=== PATIENT | female | born 1930 | race Caucasian/White ===

== ENCOUNTER 2017-01-23 03:36 | Inpatient (IN) ==
[2017-01-23] MEDS ORDERED: Naloxone 0.4 MG/ML INJ IVP PRN (07:57)
--- NOTE | 2017-01-23 08:13 | Internal Med History&Physical ---
Date of Encounter: 01/23/17 Time of Encounter: 08:03 Assessment and Plan (1) Epilepsy Current visit: Yes Status: Acute Patient is newly diagnosed with epilepsy. This is a clinical diagnosis at [facility]. I have spoken with neurologist change control coordinator. Case discussed with the neurology change control coordinator at length. Plan: -Admitted as an observation. -Soft diet. -Restarted home medications. -IV benzodiazepines for terminating seizures. -Fall precautions. -Seizure precautions. -MRI of brain. -EEG. -Neurologic consult. -PT/OT evaluation. -DVT prophylaxis. Qualifiers: Epilepsy type: unspecified Intractability: not intractable Status epilepticus: without status epilepticus Qualified Code(s): G40.909 - Epilepsy , unspecified, not intractable, without status epilepticus (2) Parkinsons disease Current visit: Yes Status: Acute Standing Parkinson's disease. Restart her home medication. (3) Hypertension Current visit: Yes Status: Acute Noted that the patient's blood pressure was elevated. Restarted home medications. We will have a close observation regarding her blood pressure. It does not appear that this patient has a hypertensive urgency/emergency. Qualifiers: Hypertension type: essential hypertension Qualified Code(s): I10 - Essential (primary) hypertension (4) Hyperlipidemia Current visit: Yes Status: Acute Patient is on statins. We will continue the same. Qualifiers: Hyperlipidemia type: unspecified Qualified Code(s): E78.5 - Hyperlipidemia , unspecified (5) DVT prophylaxis Current visit: Yes Status: Acute Heparin. Medical decision making: This patient has a [id number] risk of worsening neurological status in spite of being on appropriate treatment. Internal Medicine - H&P: HPI Chief complaint: Seizures Admitted From: Hospital to Hospital Transfer Plans for Post Hospital Care: Home History of present illness: Patient is a poor historian. History gathered from the transfer papers and call to hold the hospital emergency department. Patient is known to have a Parkinson's disease. Patient has multiple medical disorders. It was noted that recently patient was started tapering dosages of benzodiazepines as she was taking pretty high dosages for her anxiety. It was noted that patient had a jerky movement of her upper and lower extremity formulas than 2 minutes. This was the reason she was brought to the [facility] emergency room. 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 Patient was transferred to this hospital for further management. Reason for transfer: Speciality care was not available at [facility] : Neurology service. Family history: Noncontributory Internal Medicine - H&P: Meds Atorvastatin [Lipitor] 20 mg PO HS 01/23/17 [History] Buspirone HCl [Buspar] 20 mg PO BID 01/23/17 [History] Carbidopa/Levodopa [Carbidopa-Levo 10-100 mg Odt] 1 each PO TID 01/23/17 [ History] Citalopram [CeleXA] 20 mg PO DAILY 01/23/17 [History] Cyclobenzaprine [Flexeril] 10 mg PO HS 01/23/17 [History] Ibuprofen [Motrin] 400 mg PO TID PRN 01/23/17 [History] Labetalol HCl 200 mg PO BID 01/23/17 [History] Lisinopril [Zestril] 10 mg PO DAILY 01/23/17 [History] Simvastatin [Zocor] 40 mg PO HS 01/23/17 [History] Tizanidine HCl [Zanaflex] 2 mg PO Q12H PRN 01/23/17 [History] Allergies ciprofloxacin [From Cipro] Allergy (Unknown, Verified 01/23/17 06:36) See Comments unknown reaction/ patient confused Penicillins Allergy (Unknown, Verified 01/23/17 06:37) See Comments reaction unknown/patient confused All Systems PM: A 10-system review of systems was performed and is negative for pertinent findings except as documented above in the HPI. - Constitutional Constitutional: no chills, no fever(s), no night sweats - EENT Eyes: no change in vision, no discharge, no pain, no photophobia Ears: no ear discharge, no ear pain, no tinnitus Nose, mouth and throat: no dysphagia, no nasal discharge, no neck pain, no sore throat - Cardiovascular Cardiovascular ROS IM: no chest pain, no diaphoresis, no dyspnea, no lightheadedness, no palpitations, no syncope - Respiratory Respiratory: no cough, no dyspnea, no wheezing, no excessive phlegm production - Gastrointestinal Gastrointestinal: no abdominal pain, no diarrhea, no hematemesis, no hematochezia, no melena, no nausea, no vomiting - Genitourinary Genitourinary: no change in urinary stream, no dysuria, no flank pain, no hematuria - Musculoskeletal Musculoskeletal ROS IM: no numbness, no tingling - Integumentary Integumentary IM: no rash, no unusual bruising - Neurological Neurological ROS: no confusion, no convulsions, no focal weakness, no numbness, no tingling, no tremor(s) - Hematologic/Lymphatic Hematologic/Lymphatic: no easy bruising - Constitutional Vitals: Temp Pulse Resp BP Pulse Ox 98.2 F 81 18 169/81 95 01/23/17 07:39 01/23/17 07:39 01/23/17 07:39 01/23/17 07:39 01/23/17 07:39 General appearance: Present: A&O X 3, pleasant, no acute distress, answers questions appropriately - Head Head exam: Present: atraumatic, normocephalic - Eye Eye exam: Present: PERRL, conjuntiva pink, sclera anicteric Pupils: Present: PERRL - Neck Neck exam general surgery: Present: supple, trachea midline. Absent: lymphadenopathy - Respiratory Respiratory exam: Present: CTAB. Absent: accessory muscle use, rales, rhonchi, wheezes - Cardiovascular Cardiovascular exam: Present: RRR, +S1, +S2. Absent: diastolic murmur, gallop, rubs, systolic murmur - GI/Abdominal GI/Abdominal exam: Present: normal bowel sounds, soft, no peritoneal signs. Absent: distended, tenderness - Extremities Exam Extremities exam: Present: warm, radial pulses palpable and symetrical. Absent : calf tenderness, cyanotic, pedal edema - Neurological Exam Neurological exam: Present: CN II-XII intact, oriented X3, no focal deficits. Absent: pronater drift, facial droop, speech deficit - Skin Skin exam: Present: dry, intact Internal Med - H&P Results - Labs CBC & Chem 7: 01/24/17 12:18 01/24/17 11:36
[2017-01-23] MEDS: *HR* Heparin 5,000 UNIT/ML VIAL SQ SCH ×2 (08:28→20:27)
[2017-01-23] MEDS: CARBIDOPA LEVO PO SCH ×3 (08:29→23:58)
[2017-01-23 08:33] LABS: Basophils % 0.4 %; Eosinophils % 0.4 %; Hematocrit 36.4 % (35.3-44.9); Hemoglobin 12.2 g/dL (11.5-15.4); Immature Granulocytes % 0.3 % (0-4); Lymphocytes # 1.8 K/mcL (0.6-4.6); Mean Corpuscular HGB Conc 33.5 g/dL (31.6-35.5); Mean Corpuscular Hemoglobin 29.5 pg (28.0-33.3); Mean Corpuscular Volume 87.9 fL (83.0-100.0); Mean Platelet Volume 10.4 fL (9.4-12.4); Monocytes # 0.6 K/mcL (0.0-1.3); Monocytes % 8.2 %; Neutrophils # 4.6 K/mcL (1.6-8.9); Platelet Count 209 K/mcL (140-400); Red Blood Count 4.14 M/mcL (3.82-4.97); Red Cell Distribution Width 12.8 % (11.5-14.5); Segmented Neutrophils % 65.7 %
[2017-01-23 09:00] LABS: Alanine Aminotransferase 18 Units/L (0-55); Albumin 3.4 g/dL (3.5-5.0); Albumin/Globulin Ratio 1.1 (1.1-2.2); Alkaline Phosphatase 88 Units/L (38-126); Aspartate Amino Transferase 17 Units/L (5-34); BUN/Creatinine Ratio 15 (6-26); Bilirubin,Total 0.8 mg/dL (0.2-1.2); Blood Urea Nitrogen 11 mg/dL (7-20); Calcium 8.6 mg/dL (8.6-10.8); Carbon Dioxide 20 mEq/L (19-29); Chloride 105 mEq/L (98-109); Glucose 105 mg/dL (70-99); Magnesium 1.9 mg/dL (1.6-2.6); Osmolality,Calculated 280 (280-300); Phosphorous 3.1 mg/dL (2.3-4.7); Potassium 3.9 mEq/L (3.5-4.5); Sodium 135 mEq/L (136-145); Total Protein 6.4 g/dL (6.0-8.3); eGFR For African Americans > 60 (> 60); eGFR For Non-African Americans > 60 (> 60)
[2017-01-23 10:51] LABS: Bilirubin,Urine Negative (Negative); Blood,Urine Negative (Negative); Clarity,Urine Clear (Clear); Color,Urine Yellow (Yellow); Glucose,Urine (UA) Normal (Normal); Ketones,Urine 40 mg/dL (Negative); Leukocyte Esterase,Urine Trace (Negative); Nitrite,Urine Negative (Negative); Protein,Urine Negative (Neg-Trace); Specific Gravity,Urine 1.014 (1.010-1.025); Urobilinogen,Urine Normal (Normal)
[2017-01-23 10:53] LABS: Bacteria,Urine Few per hpf (None-Few); Hyaline Casts,Urine None Seen per lpf (None-Few); RBC,Urine 0-3 per hpf (0-3); Squamous Epithelial Cell,Urine Many per lpf (None-Few)
[2017-01-23] MEDS: *HR* LORazepam 2 MG/ML VIAL IVP PRN ×2 (15:08→20:28)
--- NOTE | 2017-01-23 16:45 | Neurology - Consult Note ---
Date of Encounter: 01/23/17 Time of Encounter: 16:39 Assessment and Plan (1) Epilepsy Current Visit: Yes Status: Acute Patient is an 86 year old woman with Parkinson's disease anxiety who developed some shaking, tremor, and jerking activity involving her arms witnessed by physician calling it /temporal lobe epilepsy', occurring in a time when she is being tapering down the use of benzediazepam. This could be complicated by benzodiazepam withdrawal, either in the form of withdwaral anxiety or withdrawal seizure activity. Prior history of seizure is vague but at this time it would be rasmussen to start her on antiepileptic therapy, totally, empirical, in the form of keppra 250mg bid. Obtain MRI of brain and routine EEG. Continue medical and supportive. Can follow up the patient in clinic after discharge from the hospital. Qualifiers: Epilepsy type: unspecified Intractability: not intractable Status epilepticus: without status epilepticus Qualified Code(s): G40.909 - Epilepsy , unspecified, not intractable, without status epilepticus History of Present Illness Chief complaint: seizure likely activity HPI: Ms. Reno is an 86 year old female wih H significant for Parkinson's disease , anxiety on chronic nerve pills, who presented initially to [facility] due to having shaking/jerking activity thought to be temporal lobe epilepsy and transferred here to further evaluation and treatment. Reportedly, patient have been in the process of tapering down the use of quite large dose of benzodiazepam and she developed some anxiety and shakiness and was told to have temporal epilepsy at the request of physician at [facility]. Patient has no prior history of seizures and says that she has nervousness spells but she does not pass out. She is a poor historian but mentions that she may have seizures in her younger years. No reports of tongue biting or urinary incontinence. She carries diagnosis of Parkinson disease made by her PCP. Has not seen a neurologist to her knowledge. She says that she has bad memory and can not remember nothing. Medications and Allergies Atorvastatin [Lipitor] 20 mg PO HS 01/23/17 [History] Buspirone HCl [Buspar] 20 mg PO BID 01/23/17 [History] Carbidopa/Levodopa [Carbidopa-Levo 10-100 mg Odt] 1 each PO TID 01/23/17 [ History] Citalopram [CeleXA] 20 mg PO DAILY 01/23/17 [History] Cyclobenzaprine [Flexeril] 10 mg PO HS 01/23/17 [History] Ibuprofen [Motrin] 400 mg PO TID PRN 01/23/17 [History] Labetalol HCl 200 mg PO BID 01/23/17 [History] Lisinopril [Zestril] 10 mg PO DAILY 01/23/17 [History] Simvastatin [Zocor] 40 mg PO HS 01/23/17 [History] Tizanidine HCl [Zanaflex] 2 mg PO Q12H PRN 01/23/17 [History] Allergies ciprofloxacin [From Cipro] Allergy (Unknown, Verified 01/23/17 06:36) See Comments unknown reaction/ patient confused Penicillins Allergy (Unknown, Verified 01/23/17 06:37) See Comments reaction unknown/patient confused All Systems: A 10-system review of systems was performed and is negative for pertinent findings except as documented above in the HPI. Physical Examination - Vital Signs Vital Signs: Initial Vital Signs Temp Pulse Resp BP Pulse Ox 98.7 F 80 20 187/78 94 L 01/23/17 05:43 01/23/17 05:43 01/23/17 05:43 01/23/17 05:43 01/23/17 05:43 - Constitutional General appearance: comfortable - Neurologic Sensorimotor examination: intact Detailed motor examination: other (Diffusely weak but no significant focal weakness. ) Detailed sensory examination: intact Posture: other (Patient has diffuse muslc rigidity, positive for cogwheeling rigidity, without unilateral preference. Fine tremors noted in her hadns and fingers, mixed features of rest and postural tremors) Reflex and gait examination: intact Reflexes: Biceps: 2+, Triceps: 2+, Brachioradialis: 2+, Patella: 2+, Achilles: 2 + Mental Status Examination: awake, alert, oriented to person, oriented to place, oriented to time, follows commands appropriately, answers questions appropriately (Tend to repeat and digress, Unable to provide detailed story of her illness. Focuses on some chest discorts and abdominal discomforts to the left flank area), no agnosia, no aphasia, no aproxia, lucid, follows simple commands Cranial nerve examination: PERRL, EOMI, visual frye intact, corneal reflexes brisk symmetrically, sensory to face intact, mastication intact, no facial asymmetry is present, no dysarthria, hearing is intact symmetrically, soft palate elevates bilaterally upon phonation, gag reflex intact, flexes SCM and trapezius muscles symmetrically with full power, tongue protrudes midline, no atrophy or facial fasiculations present Results - Laboratory Findings CBC and BMP: 01/23/17 08:22 01/23/17 08:22 Abnormal lab findings: Abnormal lab results Sodium 135 mEq/L (136-145) L 01/23/17 08:22 Glucose 105 mg/dL (70-99) H 01/23/17 08:22 POC Glucose 119 (58-89) H 01/23/17 15:45 Albumin 3.4 g/dL (3.5-5.0) L 01/23/17 08:22 Urine Ketones 40 mg/dL (Negative) H 01/23/17 10:30 Ur Leukocyte Esterase Trace (Negative) H 01/23/17 10:30 Urine Microscopic WBC 3-5 per hpf (0-3) H 01/23/17 10:30 Ur Squamous Epith Cells Many per lpf (None-Few) H 01/23/17 10:30 Consult Discharge Plan - Plan Referrals: Brock Cr DO [Primary Care Provider] - 01/30/17 2:00 pm
[2017-01-23] MEDS: levETIRAcetam 250 MG TABLET PO SCH (17:18)
[2017-01-24] MEDS: *HR* Heparin 5,000 UNIT/ML VIAL SQ SCH ×2 (05:42→20:12)
[2017-01-24] MEDS: levETIRAcetam 250 MG TABLET PO SCH ×2 (05:42→17:39)
[2017-01-24] MEDS: CARBIDOPA LEVO PO SCH (07:39)
--- NOTE | 2017-01-24 10:16 | Internal Med Progress Note ---
<Francisco Perry - Last Filed: 01/24/17 10:10> Date of Encounter: 01/24/17 Time of Encounter: 10:20 - Assessment and plan (1) Epilepsy Current Visit: Yes Status: Acute Assessment and plan: Questionable. MRI showed no evidence of lesion or sequela secondary to epilepsy. Neurology is following the patient is started the patient on Keppra 500 mg twice a day. EEG is pending. No seizure activity since presentation. Continue seizure precautions. Other causes of the patient's symptoms also include benzodiazepine withdrawal as the patient was being tapered as an outpatient. We will restart low-dose Ativan on dose that she was receiving as an outpatient. There does not appear to be a metabolic derangement that could cause her symptoms, ACS appears unlikely as troponin at the outpatient facility was negative, we will recheck. Patient does have some ST depression in V5 and V6, there is no old EKG to compare to. Qualifiers: Epilepsy type: unspecified Intractability: not intractable Status epilepticus: without status epilepticus Qualified Code(s): G40.909 - Epilepsy , unspecified, not intractable, without status epilepticus (2) Parkinsons disease Current Visit: Yes Status: Acute Assessment and plan: Could be contributing to the patient's presenting symptoms. There is no appear to be an active tremor at this time. Continue Sinemet. (3) Hyperlipidemia Current Visit: Yes Status: Acute Assessment and plan: Continue statin. Qualifiers: Hyperlipidemia type: unspecified Qualified Code(s): E78.5 - Hyperlipidemia , unspecified (4) Hypertension Current Visit: Yes Status: Acute Assessment and plan: Patient was hypertensive on presentation but this is resolved. Hypertension could have also contributed to her presenting symptoms. Continue labetalol 20 mg by mouth BID Qualifiers: Hypertension type: essential hypertension Qualified Code(s): I10 - Essential (primary) hypertension (5) DVT prophylaxis Current Visit: Yes Status: Acute Assessment and plan: Heparin 5000 units subcutaneous twice a day. - Subjective Interval history: Patient seen and examined at bedside. Patient has no complaints today. She does state that she had some slight chest pain yesterday but this is resolved. She denies any episodes of shaking, trembling, loss of consciousness. No seizure activity was reported by the staff. - Constitutional Vitals: Temp Pulse Resp BP Pulse Ox 97.7 F 74 16 121/68 97 01/24/17 07:14 01/24/17 07:14 01/24/17 07:14 01/24/17 07:14 01/24/17 07:14 General appearance: Present: A&O X 3, pleasant, no acute distress, answers questions appropriately - Respiratory Respiratory exam: Present: CTAB. Absent: rales, rhonchi, wheezes - Cardiovascular Cardiovascular exam: Present: RRR. Absent: gallop, rubs, systolic murmur - GI/Abdominal GI/Abdominal exam: Present: normal bowel sounds, soft. Absent: distended, tenderness - Extremities Exam Extremities exam: Absent: pedal edema, tenderness - Neurological Exam Neurological exam: Present: alert, CN II-XII intact, oriented X3, no focal deficits, strengths equal and symetr throughout. Absent: motor sensory deficit Internal Medicine: Result - Labs CBC & Chem 7: 01/23/17 08:22 01/23/17 08:22 Labs: Urine 01/23/17 Range/Units 10:30 Urine Color Yellow (Yellow) Urine Clarity Clear (Clear) Urine pH 7.0 (5.0-8.0) pH Units Ur Specific [place] 1.014 (1.010-1.025) Urine Protein Negative (Neg-Trace) mg/dL Urine Glucose (UA) Normal (Normal) mg/dL - Impressions Impressions Chest X-Ray 01/23/17 07:59 IMPRESSION: 1. No convincing evidence of an acute cardiopulmonary abnormality. 2. Moderate hiatal hernia. D/ / Derrick Licona MD / Derrick Licona MD Interpreting Provider: Derrick Licona MD Brain MRI 01/23/17 08:21 IMPRESSION: 1. No acute intracranial abnormality. 2. No findings to suggest etiology of reported temporal lobe epilepsy. 3. Senescent parenchymal volume loss and mild chronic white matter microvascular ischemic changes. D/ / Kulwinder Whitehead MD / Kulwinder Whitehead MD Interpreting Provider: Kulwinder Whitehead MD Consult Discharge Plan - Plan Referrals: Brock Cr DO [Primary Care Provider] - 01/30/17 2:00 pm <Nav Wood - Last Filed: 01/24/17 11:07> Date of Encounter: 01/24/17 - Constitutional Vitals: Temp Pulse Resp BP Pulse Ox 97.7 F 74 16 121/68 97 01/24/17 07:14 01/24/17 07:14 01/24/17 07:14 01/24/17 07:14 01/24/17 07:14 Internal Medicine: Result - Labs CBC & Chem 7: 01/23/17 08:22 01/23/17 08:22 - Impressions Impressions Brain MRI 01/23/17 08:21 IMPRESSION: 1. No acute intracranial abnormality. 2. No findings to suggest etiology of reported temporal lobe epilepsy. 3. Senescent parenchymal volume loss and mild chronic white matter microvascular ischemic changes. D/ / Kulwinder Whitehead MD / Kulwinder Whitehead MD Interpreting Provider: Kulwinder Whitehead MD - Attending Attestation CP with possible st dep lat leads order stress test for the morning may discontinue keppra if EEG normal I examined this patient and my medical decision-making was reviewed with the TRIAGE TECHNICIAN/PA/Advanced Practice Nurse/Resident Physician. I agree with the documented findings, disposition and treatment plan as described except to the extent set forth below.
[2017-01-24] MEDS: *HR* LORazepam 0.5 MG TABLET PO SCH ×2 (10:50→20:12)
[2017-01-24 11:57] LABS: BUN/Creatinine Ratio 28 (6-26); Blood Urea Nitrogen 25 mg/dL (7-20); Calcium 8.6 mg/dL (8.6-10.8); Carbon Dioxide 24 mEq/L (19-29); Chloride 106 mEq/L (98-109); Glucose 99 mg/dL (70-99); Osmolality,Calculated 288 (280-300); Potassium 4.1 mEq/L (3.5-4.5); Sodium 137 mEq/L (136-145); eGFR For African Americans > 60 (> 60); eGFR For Non-African Americans > 60 (> 60)
--- NOTE | 2017-01-24 11:57 | Electrocardiograph Report ---
[place] [id number] Test Date: 2017-01-23 Pat Name: Elba Reno Department: 112 Room: 2A23 Gender: F Project Architect: : [id number] Requested By: Nav Wood Order Number: [id number] Reading MD: Daily Encarnacion Measurements Intervals Conifer Rate: 99 P: MN: 0 QRS: -57 QRSD: 134 T: 83 QT: 398 QTc: 454 Interpretive Statements SINUS RHYTHM WITH PAC MARKED LEFT AXIS DEVIATION LEFT BUNDLE BRANCH BLOCK Electronically Signed On 01-24-2017 11:56:33 EST by Daily Encarnacion
--- NOTE | 2017-01-24 12:04 | EEG/EMG/Oth Biometrics Report ---
EEG Procedure Report Date of procedure: 01/24/17 EEG Procedure: Routine EEG Procedure Note: This EEG was acquired with standard international 1020 system with EKG recording. The background EEG activity was characterized by the presence of posterior dominant alpha rhythm with the best frequency up to 10.5 Hz. The background activity was reactive to eye openings. Sleep stages were not identified during this tracing. Drowsiness was characterized by drop off of posterior dominant Alpha rhythm. There are no electrographic seizures identified during this tracing. There are no epileptiform discharges and focal slowing noted during this recording. Photic stimulation produced and produced no abnormalities. Hyperventilation procedure not performed EKG tracing showed no significant cardiac dysrhythmia. Impression: This is essentially a normal awake and drowsy EEG. Clinical Correlation: Normal EEGs, however, do not exclude epilepsy. Clinical correlation is advised.
[2017-01-24 12:27] LABS: Basophils % 0.5 %; Eosinophils # 0.1 K/mcL (0.0-0.6); Eosinophils % 1.1 %; Hematocrit 33.1 % (35.3-44.9); Hemoglobin 11.1 g/dL (11.5-15.4); Immature Granulocytes % 0.2 % (0-4); Lymphocytes % 30.2 %; Mean Corpuscular HGB Conc 33.5 g/dL (31.6-35.5); Mean Corpuscular Hemoglobin 29.9 pg (28.0-33.3); Mean Corpuscular Volume 89.2 fL (83.0-100.0); Mean Platelet Volume 10.5 fL (9.4-12.4); Monocytes # 0.7 K/mcL (0.0-1.3); Monocytes % 10.5 %; Neutrophils # 3.8 K/mcL (1.6-8.9); Platelet Count 194 K/mcL (140-400); Red Blood Count 3.71 M/mcL (3.82-4.97); Red Cell Distribution Width 13.1 % (11.5-14.5); Segmented Neutrophils % 57.5 %
[2017-01-25] MEDS: *HR* Heparin 5,000 UNIT/ML VIAL SQ SCH ×2 (05:11→20:25)
[2017-01-25] MEDS: levETIRAcetam 250 MG TABLET PO SCH ×2 (05:11→17:50)
[2017-01-25] MEDS ORDERED: Regadenoson 0.4 MG/5 ML SYRINGE IVP ONE (06:44)
[2017-01-25 07:10] LABS: BUN/Creatinine Ratio 27 (6-26); Blood Urea Nitrogen 20 mg/dL (7-20); Calcium 8.1 mg/dL (8.6-10.8); Carbon Dioxide 23 mEq/L (19-29); Chloride 107 mEq/L (98-109); Glucose 94 mg/dL (70-99); Osmolality,Calculated 290 (280-300); Potassium 3.7 mEq/L (3.5-4.5); Sodium 139 mEq/L (136-145); eGFR For African Americans > 60 (> 60); eGFR For Non-African Americans > 60 (> 60)
[2017-01-25 07:29] LABS: Basophils % 0.4 %; Eosinophils # 0.2 K/mcL (0.0-0.6); Eosinophils % 2.3 %; Hematocrit 30.7 % (35.3-44.9); Hemoglobin 10.2 g/dL (11.5-15.4); Immature Granulocytes % 0.1 % (0-4); Lymphocytes # 2.2 K/mcL (0.6-4.6); Lymphocytes % 32.2 %; Mean Corpuscular HGB Conc 33.2 g/dL (31.6-35.5); Mean Corpuscular Hemoglobin 30.1 pg (28.0-33.3); Mean Corpuscular Volume 90.6 fL (83.0-100.0); Monocytes # 0.7 K/mcL (0.0-1.3); Monocytes % 9.9 %; Neutrophils # 3.8 K/mcL (1.6-8.9); Platelet Count 166 K/mcL (140-400); Red Blood Count 3.39 M/mcL (3.82-4.97); Red Cell Distribution Width 13.1 % (11.5-14.5); Segmented Neutrophils % 55.1 %
--- NOTE | 2017-01-25 10:49 | Discharge Summary ---
Date of Encounter: 01/25/17 Time of Encounter: 10:49 - Discharge Diagnosis (1) Epilepsy Priority: Primary Status: Acute Qualifiers: Epilepsy type: unspecified Intractability: not intractable Status epilepticus: without status epilepticus Qualified Code(s): G40.909 - Epilepsy , unspecified, not intractable, without status epilepticus (2) Parkinsons disease Priority: Secondary Status: Chronic (3) Hyperlipidemia Priority: Secondary Status: Chronic Qualifiers: Hyperlipidemia type: unspecified Qualified Code(s): E78.5 - Hyperlipidemia , unspecified (4) Hypertension Priority: Secondary Status: Chronic Qualifiers: Hypertension type: essential hypertension Qualified Code(s): I10 - Essential (primary) hypertension - Discharge Medications Prescriptions: LevETIRAcetam [Keppra] 250 mg PO Q12HR #60 tablet Home Medications: Atorvastatin [Lipitor] 20 mg PO HS 01/23/17 [History] Buspirone HCl [Buspar] 20 mg PO BID 01/23/17 [History] Carbidopa/Levodopa [Carbidopa-Levo 10-100 mg Odt] 1 each PO TID 01/23/17 [ History] Citalopram [CeleXA] 20 mg PO DAILY 01/23/17 [History] Cyclobenzaprine [Flexeril] 10 mg PO HS 01/23/17 [History] Ibuprofen [Motrin] 400 mg PO TID PRN 01/23/17 [History] Labetalol HCl 200 mg PO BID 01/23/17 [History] Lisinopril [Zestril] 10 mg PO DAILY 01/23/17 [History] Simvastatin [Zocor] 40 mg PO HS 01/23/17 [History] Tizanidine HCl [Zanaflex] 2 mg PO Q12H PRN 01/23/17 [History] Carbidopa/Levodopa 10/100 [Sinemet 10/100] 1 each PO TID tablet 01/25/17 [Rx] LORazepam [Ativan] 0.25 mg PO BID tablet 01/25/17 [Rx] LevETIRAcetam [Keppra] 250 mg PO Q12HR #60 tablet 01/25/17 [Rx] Allergies/Adverse Reactions: Allergies ciprofloxacin [From Cipro] Allergy (Unknown, Verified 01/23/17 06:36) See Comments unknown reaction/ patient confused Penicillins Allergy (Unknown, Verified 01/23/17 06:37) See Comments reaction unknown/patient confused Procedures/tests Complete & Pending: Procedures Performed prior 72 hours Category Date Time Status NM kitty perf SPECT multi [NM] Routine Exams 01/24/17 07:00 Taken MR head/brain wo con [MR] Routine MRI 01/23/17 08:21 Completed ECG 12 lead ECG [ECG] Routine Y 01/23/17 14:58 Completed EKG [ECG 12 lead ECG] [ECG] Stat Y 01/24/17 10:03 Stop Req SP pharm nuclear stress Routine Y 01/25/17 07:00 Completed Date of admission: 01/23/17 05:11 Primary care physician: Brock Cr, Consults: 01/23/17 06:43 Consult to Neurology [CONS] Routine Consulting Provider: [facility] Reason for Consult: Seizures Call Completed: No 01/23/17 08:00 Consult to Occupational Therapy [CONS] Routine Comment: Evaluate, develop and implement POC Consult to Physical Therapy [CONS] Routine Comment: Evaluate, develop and implement POC Consult to Residential Sales Executive [CONS] Routine Reason for SW Consult: placement 01/23/17 11:46 Consult to Interpret Exam [CONS] Routine Consulting Provider: Сергей Finnegan Consult to Interpret Exam: Interpret EEG Discharging clinician: Francisco Perry Anticipated date of discharge: 01/25/17 - Patient Status Disposition: Home Health Service Condition: Fair Functional capacity at discharge: independent ambulation Overall status at discharge: patient is progressing back to baseline - Discharge Instructions Follow Up With: Brock Cr DO [Primary Care Provider] - 01/30/17 2:00 pm Сергей Finnegan MD [Partnered Physician] - (3-4 weeks) Additional Instructions: Please follow up with her primary care physician in the next 1-2 weeks. Please follow-up with the neurologist, Dr. Finnegan, as scheduled. Please resume your home medications. Please start Keppra 250 mg twice a day. Please return for any new or worsening symptoms. - Diet and Activity Activity: ambulate only with your walker, increase activity as tolerated Diet: advance to your usual diet Interval History: Patient seen and examined at bedside. No acute events overnight. No evidence of seizure activity. Patient denies chest pain, shortness of breath, fever, chills. Hospital course: Ms. Rowdy is a 86 year old female with history of hypertension, hyperlipidemia , parkinsons disease presented with acute onset shaking. She was evaluated at outside hospital was concern for epileptic seizure so the patient was transferred to our facility. Patient had been on long-term chronic benzodiazepine therapy that was being withdrawn. Patient had no seizure activity during her hospital course. She was seen and evaluated by neurologist. She had an MRI of the brain and EEG which were essentially normal. Patient was placed on Keppra. Patient did have some chest pain during her hospitalization the patient underwent cardiac stress testing which was negative for ischemia. Patient was weak during her hospital stay, was evaluated by PT/ OT and recommended ECF however the patient did not qualify in refused to go to a facility. Patient was stable at time of discharge. - Time Spent with Patient Total time spent providing and/or coordinating discharge services: 40 minutes - Constitutional Vitals: Temp Pulse Resp BP Pulse Ox 98.1 F 64 14 137/69 96 01/25/17 07:12 01/25/17 07:12 01/25/17 07:12 01/25/17 07:12 01/25/17 07:12 General appearance: Present: A&O X 3, pleasant, no acute distress, answers questions appropriately - Respiratory Respiratory exam: Present: CTAB. Absent: rales, rhonchi, wheezes - Cardiovascular Cardiovascular exam: Present: RRR. Absent: gallop, rubs, systolic murmur - Extremities Exam Extremities exam: Absent: pedal edema, tenderness - Neurological Exam Neurological exam: Present: alert, CN II-XII intact, oriented X3, no focal deficits. Absent: speech deficit
[2017-01-25] MEDS: *HR* LORazepam 0.5 MG TABLET PO SCH ×2 (11:17→20:26)
--- NOTE | 2017-01-25 11:37 | Nuclear Medicine Stress Report ---
Regadenoson Nuclear Stress Name: Elba Reno Date of Study: 01/25/2017 Date: 1930 Ht: 63.0 in Medical Record#: [id number] Age: 86 Wt: 119.0 lb Gender: Female Order #: [id number] Location: [facility] Room: [facility] Supervising Provider: Raj Vivar CNP Reading Physician: Francisco Cardona MD, [facility] Ordering Physician: Nav Wood MD Primary Care Physician: Brock Cr DO Stress Technologist: Leslee Topete BOTTOM LIQUOR ATTENDANT, CCT Weigher And Charger: Angel Mckeon Indications: Chest Pain Impression: No significant ECG changes with regadenoson. Gated LVEF > 70%. There is a medium sized, moderate intensity, predominantly reversible perfusion defect involving the basal-apical inferior wall. Findings are consistent with moderate reversible ischemic involving the inferior wall. Abnormal findings were communicated to the ordering physician via [employer] message. History: Hypertension Hypercholesteremia Stress Test Summary: Stress Test Type: Pharmacologic Regadenoson 0.4mg/5ml given IV Baseline Information: Initial Heart Rate: 70 Blood Pressure: 148/78 Stress Information: Test Terminated Due to (primary): As per protocol Maximum Blood Pressure: 122/80 Maximum Heart Rate: 88 Percent Maximum Heart Rate Achieved: 65 Double Product: [id number] Symptoms: No chest symptoms Nuclear Summary: SPECT myocardial perfusion imaging using Tc99m Sestamibi given intravenously was performed at rest and following cardiac stress testing. The resting images were obtained following initial dose of 11.5 mCi. Following stress an additional dose of 35.8 mCi was given at peak exercise or 30 seconds post regadenoson infusion. Findings: Stress Note * Resting ECG demonstrated sinus rhythm, non-specific IVCD, non-specific ST-T wave abnormality. * No baseline arrhythmias were noted. * Patient had no chest pain during stress. * No arrhythmias were noted during stress. * No significant ECG changes with regadenoson. Hemodynamic responses * Normal hemodynamic responses to pharmacologic stress. Study Quality * Study quality is average. Gated EF > 70% * Gated LVEF > 70%. Left Ventricle * The left ventricle is not dilated. * There is a medium sized, moderate intensity, predominantly reversible perfusion defect involving the basal-apical inferior wall. * All other segmental perfusion normal in rest and stress. * Findings are consistent with moderate reversible ischemic involving the inferior wall. TID * No evidence of transient ischemic dilatation. Updated by Francisco Cardona MD, FACC on 01/25/2017 11:32:45 AM electronically signed on 01/25/2017 11:33:17 AM with status of Final
--- NOTE | 2017-01-25 11:46 | Internal Med Progress Note ---
<Francisco Perry - Last Filed: 01/25/17 11:44> Date of Encounter: 01/25/17 Time of Encounter: 11:44 - Assessment and plan (1) Abnormal stress test Current Visit: Yes Status: Acute Assessment and plan: Patient had a history of cirrhosis morning which showed reversible inferior ischemia. This is likely the cause of the patient's symptoms. Consulted cardiology. (2) Epilepsy Current Visit: Yes Status: Acute Assessment and plan: Questionable. MRI showed no evidence of lesion or sequela secondary to epilepsy. Neurology is following the patient is started the patient on Keppra 500 mg twice a day. EEG is unremarkable. No seizure activity since presentation. Continue seizure precautions. Other causes of the patient's symptoms also include benzodiazepine withdrawal as the patient was being tapered as an outpatient. We will restart low-dose Ativan on dose that she was receiving as an outpatient. . Qualifiers: Epilepsy type: unspecified Intractability: not intractable Status epilepticus: without status epilepticus Qualified Code(s): G40.909 - Epilepsy , unspecified, not intractable, without status epilepticus (3) Parkinsons disease Current Visit: Yes Status: Chronic Assessment and plan: Could be contributing to the patient's presenting symptoms. There is no appear to be an active tremor at this time. Continue Sinemet. (4) Hyperlipidemia Current Visit: Yes Status: Chronic Assessment and plan: Continue statin. Qualifiers: Hyperlipidemia type: unspecified Qualified Code(s): E78.5 - Hyperlipidemia , unspecified (5) Hypertension Current Visit: Yes Status: Chronic Assessment and plan: Patient was hypertensive on presentation but this is resolved. Hypertension could have also contributed to her presenting symptoms. Continue labetalol 20 mg by mouth BID Qualifiers: Hypertension type: essential hypertension Qualified Code(s): I10 - Essential (primary) hypertension - Subjective Interval history: Patient seen and examined at bedside. Patient has no complaints today. She does state that she had some slight chest pain on day of admission but this is resolved. She denies any episodes of shaking, trembling, loss of consciousness. No seizure activity was reported by the staff. - Constitutional Vitals: Temp Pulse Resp BP Pulse Ox 98.1 F 64 14 137/69 96 01/25/17 07:12 01/25/17 07:12 01/25/17 07:12 01/25/17 07:12 01/25/17 07:12 General appearance: Present: A&O X 3, pleasant, no acute distress, answers questions appropriately - Respiratory Respiratory exam: Present: CTAB. Absent: rales, rhonchi, wheezes - Cardiovascular Cardiovascular exam: Present: RRR. Absent: gallop, rubs, systolic murmur - GI/Abdominal GI/Abdominal exam: Present: normal bowel sounds. Absent: distended, soft, tenderness - Extremities Exam Extremities exam: Absent: pedal edema - Neurological Exam Neurological exam: Present: alert, CN II-XII intact, oriented X3, no focal deficits Internal Medicine: Result - Labs CBC & Chem 7: 01/25/17 05:38 01/25/17 05:38 Labs: Short CBC 01/24/17 01/25/17 Range/Units 12:18 05:38 WBC 6.6 6.9 (4.3-11.1) K/mcL Hgb 11.1 L 10.2 L (11.5-15.4) g/dL Hct 33.1 L 30.7 L (35.3-44.9) % Plt Count 194 166 (140-400) K/mcL Neutrophils # 3.8 3.8 (1.6-8.9) K/mcL BMP 01/24/17 01/25/17 11:36 05:38 Sodium 137 139 Potassium 4.1 3.7 Chloride 106 107 Carbon Dioxide 24 23 BUN 25 H D 20 Creatinine 0.88 0.75 Glucose 99 94 Calcium 8.6 8.1 L Cardiac Enzymes 01/24/17 01/24/17 Range/Units 11:36 18:23 Troponin I 0.02 0.02 (0-0.03) ng/mL Consult Discharge Plan - Plan Additional Instructions: Please follow up with her primary care physician in the next 1-2 weeks. Please follow-up with the neurologist, Dr. Finnegan, as scheduled. Please resume your home medications. Please start Keppra 250 mg twice a day. Please return for any new or worsening symptoms. Referrals: Brock Cr DO [Primary Care Provider] - 01/30/17 2:00 pm (Please follow up as schedule...) Сергей Finnegan MD [Partnered Physician] - 01/31/17 10:30 am (3-4 weeks) Prescriptions: LevETIRAcetam [Keppra] 250 mg PO Q12HR #60 tablet <Nav Wood - Last Filed: 01/25/17 13:26> - Constitutional Vitals: Temp Pulse Resp BP Pulse Ox 97.7 F 69 14 120/70 100 01/25/17 12:07 01/25/17 12:07 01/25/17 12:07 01/25/17 12:07 01/25/17 12:07 Internal Medicine: Result - Labs CBC & Chem 7: 01/25/17 05:38 01/25/17 05:38 Labs: Short CBC 01/25/17 Range/Units 05:38 WBC 6.9 (4.3-11.1) K/mcL Hgb 10.2 L (11.5-15.4) g/dL Hct 30.7 L (35.3-44.9) % Plt Count 166 (140-400) K/mcL Neutrophils # 3.8 (1.6-8.9) K/mcL BMP 01/25/17 05:38 Sodium 139 Potassium 3.7 Chloride 107 Carbon Dioxide 23 BUN 20 Creatinine 0.75 Glucose 94 Calcium 8.1 L Cardiac Enzymes 01/24/17 Range/Units 18:23 Troponin I 0.02 (0-0.03) ng/mL - Attending Attestation cardiology consulted. ASA I examined this patient and my medical decision-making was reviewed with the GTA/PA/Advanced Practice Nurse/Resident Physician. I agree with the documented findings, disposition and treatment plan as described except to the extent set forth below.
[2017-01-25 14:00] LABS: Chol/HDL Ratio 3.2 (0-4.9)
[2017-01-25] MEDS: Aspirin Enteric Coated 81 MG Tablet PO SCH (14:18)
--- NOTE | 2017-01-25 14:49 | Cardiology Consult Note ---
Date of Encounter: 01/25/17 Time of Encounter: 14:45 Assessment and Plan (1) Abnormal stress test Current Visit: Yes Status: Acute Pharmacologic stress test shows a medium size moderate, predominantly reversible perfusion defect involving the basal-apical inferior wall. Findings are consistent with moderate reversible ischemia involving the inferior wall. She describes atypical chest pain. EKG shows a left bundle branch block. No previous EKG to compare. Troponins are negative. I discussed proceeding with a left heart catheterization versus medical management. She prefers to continue with medical management due to advanced age. Add norvasc for better b/p control. NTG SL use reviewed with patient. Recommend giving RX at discharge. Continue asa, statin, and bb. Out pt f/u with Dr. Manley will be scheduled in 1-2 weeks. (2) Hypertension Current Visit: Yes Status: Chronic Add norvasc for better b/p control. Low sodium diet. Qualifiers: Hypertension type: essential hypertension Qualified Code(s): I10 - Essential (primary) hypertension Discussion w patient/family: The assessment and plan as outlined above was discussed with the patient and/or family members who expressed understanding and agreement. All questions were answered. Thank you for involving us in the care of your patient. Please call with any questions. History of Present Illness Consult date: 01/25/17 Requesting physician: Francisco Perry Consult reason: abnormal stress Chief complaint: tremors, shaking, chest pain. History of present illness: Ms. Reno is a frail 86 year old female with a history of hypertension and parkinson's disease. She presented with the c/o increased shaking and jerking. She also c/o elevated blood pressures at home. During her stay she also c/o mid -sternal chest discomfort at rest. She admits to having the discomfort in the past and she always felt it was from her anxiety. She also c/o SOB when bending over. She was seen by neurology for concern of seizures. MRI showed no acute changes. EEG was negative. She was started on Keppra. She continues to have reproducible pain under her left breast and c/o bilateral neck pain that increases with movement of her head. She underwent stress test today that was found to be abnormal. She denies history of CAD. Past Med Surg Social Fam HX - Past Medical History Medical history: hyperlipidemia, other (parkinsons, seizure) Medications and Allergies Atorvastatin [Lipitor] 20 mg PO HS 01/23/17 [History] Buspirone HCl [Buspar] 20 mg PO BID 01/23/17 [History] Carbidopa/Levodopa [Carbidopa-Levo 10-100 mg Odt] 1 each PO TID 01/23/17 [ History] Citalopram [CeleXA] 20 mg PO DAILY 01/23/17 [History] Cyclobenzaprine [Flexeril] 10 mg PO HS 01/23/17 [History] Ibuprofen [Motrin] 400 mg PO TID PRN 01/23/17 [History] Labetalol HCl 200 mg PO BID 01/23/17 [History] Lisinopril [Zestril] 10 mg PO DAILY 01/23/17 [History] Simvastatin [Zocor] 40 mg PO HS 01/23/17 [History] Tizanidine HCl [Zanaflex] 2 mg PO Q12H PRN 01/23/17 [History] Carbidopa/Levodopa 10/100 [Sinemet 10/100] 1 each PO TID tablet 01/25/17 [Rx] LORazepam [Ativan] 0.25 mg PO BID tablet 01/25/17 [Rx] LevETIRAcetam [Keppra] 250 mg PO Q12HR #60 tablet 01/25/17 [Rx] Allergies ciprofloxacin [From Cipro] Allergy (Unknown, Verified 01/23/17 06:36) See Comments unknown reaction/ patient confused Penicillins Allergy (Unknown, Verified 01/23/17 06:37) See Comments reaction unknown/patient confused All Systems Review: A 10-system review of systems was performed and is negative for pertinent findings except as documented above in the HPI. Physical Examination Vital Signs, Last 4 Hours Temp Pulse Resp BP Pulse Ox 01/25/17 12:07 97.7 F 69 14 120/70 100 General: Conversant, No Apparent Distress, Other (frail elderly female) HEENT: Atraumatic, Normocephaly, Mucus Membranes Moist Neck: No JVD, Normal carotid pulses Cardiac: Reg Rate and Rhythm, Normal S1 and S2, No Murmur Lungs: Normal Breath Sounds, No Wheeze, Rales, Rhonchi Neuro: Alert and responsive, No focal deficits noted Abdomen: Soft, Non-Tender Skin: No rashes noted on visualized skin Musculoskeletal: Other (Reproducible chest wall pain and neck pain) Extremities: No Clubbing, No Cyanosis, No Edema, Normal Pulses Results 01/25/17 05:38 01/25/17 05:38 Lab Results 01/24/17 01/25/17 01/25/17 18:23 05:38 05:38 WBC 6.9 Hgb 10.2 L Hct 30.7 L Plt Count 166 Sodium 139 Potassium 3.7 Chloride 107 Carbon Dioxide 23 BUN 20 Creatinine 0.75 Glucose 94 Calcium 8.1 L Troponin I 0.02 - EKG Interpretation EKG results cardiology: personally reviewed (SR with LBBB), other (Telemetry shows sr with PAC. Pauses as long as 1.9 seconds. Min HR 50 bpm. No significant Pauses.) Consult Discharge Plan - Plan Additional Instructions: Please follow up with her primary care physician in the next 1-2 weeks. Please follow-up with the neurologist, Dr. Finnegan, as scheduled. Please resume your home medications. Please start Keppra 250 mg twice a day. Please return for any new or worsening symptoms. Referrals: Brock Cr DO [Primary Care Provider] - 01/30/17 2:00 pm (Please follow up as schedule...) Сергей Finnegan MD [Partnered Physician] - 01/31/17 10:30 am (3-4 weeks) Prescriptions: LevETIRAcetam [Keppra] 250 mg PO Q12HR #60 tablet
[2017-01-25] MEDS: amLODIPine 5 MG TABLET PO SCH (15:57)
--- NOTE | 2017-01-25 17:36 | Neurology Progress Note ---
Date of Encounter: 01/25/17 Time of Encounter: 17:34 Assessment and Plan (1) Epilepsy Current Visit: Yes Status: Acute Newly physician observed 'temporal lobe seizures', late onset almost always partial onset. EEG normal. CT of head normal. Will keep on Keppra 250mg monotherapy. Follow up in neurology 2-3 weeks after discharge. Qualifiers: Epilepsy type: unspecified Intractability: not intractable Status epilepticus: without status epilepticus Qualified Code(s): G40.909 - Epilepsy , unspecified, not intractable, without status epilepticus Subjective Principal diagnosis: seizure like activity Interval history: Patient seen and examined. Patient feels better today. No recurrent seizures seen. Patient able to give history and tells that she does not have history of seizure and that she did not remember she had a seizure at [facility]. She is on keppra 250mg bid and she denies significant side effects Objective - Constitutional Vitals: Temp Pulse Resp BP Pulse Ox 98.1 F 71 14 138/78 99 01/25/17 15:36 01/25/17 15:36 01/25/17 15:36 01/25/17 15:36 01/25/17 15:36 - Neurological Exam Sensorimotor examination: Present: intact Motor Examination: Present: other (no focal weakness see) Motor examination - right side: 5/5: deltoids, biceps, triceps, wrist flexion, wrist extension, patient sitter, hip flexors, tibialis Anterior, quadriceps, toe extension (EHL), plantarflexion Motor examination - left side: 5/5: deltoids, biceps, triceps, wrist flexion, wrist extension, hip flexors, patient sitter, quadriceps, tibialis Anterior, toe extension (EHL), plantarflexion Sensation intact: Present: intact Posture: Present: other (fine tremors noted, but improved compared to yesterday) Reflex and gait examination: intact Reflexes: Biceps: 1+, Triceps: 1+, Brachioradialis: 1+, Patella: 1+, Achilles: 1 + Mental Status Examination: Present: awake, alert, oriented to person, oriented to place, oriented to time, follows commands appropriately, answers questions appropriately (Tend to repeat and digress, Unable to provide detailed story of her illness. Focuses on some chest discorts and abdominal discomforts to the left flank area), no agnosia, no aphasia, no aproxia, lucid, follows simple commands Cranial nerve examination: Present: PERRL, EOMI, visual frye intact, corneal reflexes brisk symmetrically, sensory to face intact, mastication intact, no facial asymmetry is present, no dysarthria, hearing is intact symmetrically, soft palate elevates bilaterally upon phonation, gag reflex intact, flexes SCM and trapezius muscles symmetrically with full power, tongue protrudes midline, no atrophy or facial fasiculations present Results - Laboratory Findings CBC and BMP: 01/25/17 05:38 01/25/17 05:38 Abnormal lab findings: Abnormal lab results RBC 3.39 M/mcL (3.82-4.97) L 01/25/17 05:38 Hgb 10.2 g/dL (11.5-15.4) L 01/25/17 05:38 Hct 30.7 % (35.3-44.9) L 01/25/17 05:38 BUN/Creatinine Ratio 27 (6-26) H 01/25/17 05:38 POC Glucose 91 (58-89) H 01/25/17 15:38 Calcium 8.1 mg/dL (8.6-10.8) L 01/25/17 05:38 Albumin 3.4 g/dL (3.5-5.0) L 01/23/17 08:22 Urine Ketones 40 mg/dL (Negative) H 01/23/17 10:30 Ur Leukocyte Esterase Trace (Negative) H 01/23/17 10:30 Urine Microscopic WBC 3-5 per hpf (0-3) H 01/23/17 10:30 Ur Squamous Epith Cells Many per lpf (None-Few) H 01/23/17 10:30 Consult Discharge Plan - Plan Additional Instructions: Please follow up with her primary care physician in the next 1-2 weeks. Please follow-up with the neurologist, Dr. Finnegan, as scheduled. Please resume your home medications. Please start Keppra 250 mg twice a day. Please return for any new or worsening symptoms. Referrals: Brock Cr DO [Primary Care Provider] - 01/30/17 2:00 pm (Please follow up as schedule...) Сергей Finnegan MD [Partnered Physician] - 01/31/17 10:30 am (3-4 weeks) Prescriptions: LevETIRAcetam [Keppra] 250 mg PO Q12HR #60 tablet
[2017-01-26] MEDS: *HR* Heparin 5,000 UNIT/ML VIAL SQ SCH ×3 (05:26→05:30)
[2017-01-26] MEDS: levETIRAcetam 250 MG TABLET PO SCH (05:30)
--- NOTE | 2017-01-26 07:27 | Discharge Summary ---
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 She was evaluated by the neurology service, had an EEG that was normal, CT head scan of the head was normal. Neurology recommended to continue Keppra upon discharge and follow- up with neurology within 3 weeks. Qualifiers: Epilepsy type: unspecified Intractability: not intractable Status epilepticus: without status epilepticus Qualified Code(s): G40.909 - Epilepsy , unspecified, not intractable, without status epilepticus (2) Abnormal stress test Priority: Secondary Status: Acute Comments: Pharmacologic stress test showed a medium size moderate, predominantly reversible perfusion defect involving the basal-apical inferior wall. Findings are consistent with moderate reversible ischemia involving the inferior wall. The patient was evaluated by the cardiology service, no further workup was recommended, cardiac catheterization was discussed and medical management was preferred due to her advanced age. (3) Hyperlipidemia Priority: Secondary Status: Chronic Qualifiers: Hyperlipidemia type: unspecified Qualified Code(s): E78.5 - Hyperlipidemia , unspecified (4) Hypertension Priority: Secondary Status: Chronic Qualifiers: Hypertension type: essential hypertension Qualified Code(s): I10 - Essential (primary) hypertension (5) Parkinsons disease Priority: Secondary Status: Chronic - Discharge Medications Prescriptions: LevETIRAcetam [Keppra] 250 mg PO Q12HR #60 tablet Home Medications: Atorvastatin [Lipitor] 20 mg PO HS 01/23/17 [History] Buspirone HCl [Buspar] 20 mg PO BID 01/23/17 [History] Carbidopa/Levodopa [Carbidopa-Levo 10-100 mg Odt] 1 each PO TID 01/23/17 [ History] Citalopram [CeleXA] 20 mg PO DAILY 01/23/17 [History] Cyclobenzaprine [Flexeril] 10 mg PO HS 01/23/17 [History] Ibuprofen [Motrin] 400 mg PO TID PRN 01/23/17 [History] Labetalol HCl 200 mg PO BID 01/23/17 [History] Lisinopril [Zestril] 10 mg PO DAILY 01/23/17 [History] Simvastatin [Zocor] 40 mg PO HS 01/23/17 [History] Tizanidine HCl [Zanaflex] 2 mg PO Q12H PRN 01/23/17 [History] Carbidopa/Levodopa 10/100 [Sinemet 10/100] 1 each PO TID tablet 01/25/17 [Rx] LORazepam [Ativan] 0.25 mg PO BID tablet 01/25/17 [Rx] Aspirin Enteric Coated [Aspirin EC] 81 mg PO DAILY tablet. 01/26/17 [Rx] LevETIRAcetam [Keppra] 250 mg PO Q12HR #60 tablet 01/26/17 [Rx] Allergies/Adverse Reactions: Allergies ciprofloxacin [From Cipro] Allergy (Unknown, Verified 01/23/17 06:36) See Comments unknown reaction/ patient confused Penicillins Allergy (Unknown, Verified 01/23/17 06:37) See Comments reaction unknown/patient confused Procedures/tests Complete & Pending: Procedures Performed prior 72 hours Category Date Time Status NM kitty perf SPECT multi [NM] Routine Exams 01/24/17 07:00 Taken MR head/brain wo con [MR] Routine MRI 01/23/17 08:21 Completed ECG 12 lead ECG [ECG] Routine Y 01/23/17 14:58 Completed EKG [ECG 12 lead ECG] [ECG] Stat Y 01/24/17 10:03 Stop Req SP pharm nuclear stress Routine Y 01/25/17 07:00 Completed Date of admission: 01/25/17 17:54 Primary care physician: Brock Cr, Consults: 01/23/17 06:43 Consult to Neurology [CONS] Routine Consulting Provider: [facility] Reason for Consult: Seizures Call Completed: No 01/23/17 08:00 Consult to Occupational Therapy [CONS] Routine Comment: Evaluate, develop and implement POC Consult to Physical Therapy [CONS] Routine Comment: Evaluate, develop and implement POC Consult to Production Team Advisor [CONS] Routine Reason for SW Consult: placement 01/23/17 11:46 Consult to Interpret Exam [CONS] Routine Consulting Provider: Сергей Finnegan Consult to Interpret Exam: Interpret EEG 01/25/17 11:32 Consult to Cardiology [CONS] Routine Comment: Consulting Provider: [facility] Reason for Consult: Abnormal Stress Call Completed: Yes - Patient Status Disposition: Home Health Service Condition: Fair - Discharge Instructions Follow Up With: Brock Cr DO [Primary Care Provider] - 01/30/17 2:00 pm (Please follow up as schedule...) Сергей Finnegan MD [Partnered Physician] - 01/31/17 10:30 am (3-4 weeks) Additional Instructions: Please follow up with her primary care physician in the next 1-2 weeks. Please follow-up with the neurologist, Dr. Finnegan, as scheduled within the next 2 weeks. Continue Keppra 250 mg twice a day. Please return for any new or worsening symptoms. Follow-up with cardiology/Dr. Manley within the next 3 weeks - Diet and Activity Activity: increase activity as tolerated Diet: low fat, low cholesterol Hospital course: Ms. 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 Patient had no prior history of seizures and said that she had nervousness spells She is a poor historian but mentioned that she may have had seizures in her younger years. No reports of tongue biting or urinary incontinence. She carries diagnosis of Parkinson disease made by her PCP (Had not seen a neurologist to her knowledge in the past). The patient was continued on Keppra during her hospitalization. Also, she developed chest pain for which the stress test was ordered, her EKG showed left bundle branch block. The stress test was not normal for which cardiology was consulted, cardiology recommended only medical management and no cardiac catheterization to be scheduled. Recommend to continue aspirin, statin, labetalol and follow-up within the next 2 weeks. Stable to be discharged - Time Spent with Patient Total time spent providing and/or coordinating discharge services: Greater than 30 minutes (40 min) - Constitutional Vitals: Temp Pulse Resp BP Pulse Ox 98.4 F 72 14 156/71 99 01/26/17 05:57 01/26/17 05:57 01/26/17 05:57 01/26/17 05:57 01/26/17 05:57 General appearance: Present: A&O X 3, pleasant, no acute distress, answers questions appropriately - Head Head exam: Present: atraumatic, normocephalic - Eye Eye exam: Present: PERRL, conjuntiva pink, sclera anicteric Pupils: Present: PERRL - Neck Neck exam general surgery: Present: supple, trachea midline. Absent: lymphadenopathy - Respiratory Respiratory exam: Present: CTAB. Absent: accessory muscle use, rales, rhonchi, wheezes - Cardiovascular Cardiovascular exam: Present: RRR, +S1, +S2. Absent: diastolic murmur, gallop, rubs, systolic murmur - GI/Abdominal GI/Abdominal exam: Present: normal bowel sounds, soft, no peritoneal signs. Absent: distended, tenderness - Extremities Exam Extremities exam: Present: warm, radial pulses palpable and symetrical. Absent : calf tenderness, cyanotic, pedal edema - Neurological Exam Neurological exam: Present: CN II-XII intact, oriented X3, no focal deficits. Absent: pronater drift, facial droop, speech deficit - Skin Skin exam: Present: dry, intact
--- NOTE | 2017-01-26 07:39 | Physician Discharge Referral ---
Home Health/Hosp Referral Info Transfer to: Home Health Provider in Charge Post Discharge: PCP - Diagnosis (1) Epilepsy Status: Acute (2) Abnormal stress test Status: Acute (3) Hyperlipidemia Status: Chronic (4) Hypertension Status: Chronic (5) Parkinsons disease Status: Chronic - Respiratory Orders Smoking Cessation: Smoking cessation has been advised. For more information, call the [place] Tobacco Quit Line at 9-802-BDEO-NOW. - Diet/Nutrition Diet/Nutrition Orders: No Added Salt (LIEN) - Activity Activity: List: Please follow up with her primary care physician in the next 1-2 weeks. Please follow-up with the neurologist, Dr. Finnegan, as scheduled within the next 2 weeks. Continue Keppra 250 mg twice a day. Please return for any new or worsening symptoms. Follow-up with cardiology/Dr. Manley within the next 3 weeks Continue Ativan 0.25 mg twice a day - Services Needed Following services are medically necessary services: Home Health Aide, Physical Therapy - Transfer Medications Prescriptions: LevETIRAcetam [Keppra] 250 mg PO Q12HR #60 tablet Home Medications: Atorvastatin [Lipitor] 20 mg PO HS 01/23/17 [History] Buspirone HCl [Buspar] 20 mg PO BID 01/23/17 [History] Carbidopa/Levodopa [Carbidopa-Levo 10-100 mg Odt] 1 each PO TID 01/23/17 [ History] Citalopram [CeleXA] 20 mg PO DAILY 01/23/17 [History] Cyclobenzaprine [Flexeril] 10 mg PO HS 01/23/17 [History] Ibuprofen [Motrin] 400 mg PO TID PRN 01/23/17 [History] Labetalol HCl 200 mg PO BID 01/23/17 [History] Lisinopril [Zestril] 10 mg PO DAILY 01/23/17 [History] Simvastatin [Zocor] 40 mg PO HS 01/23/17 [History] Tizanidine HCl [Zanaflex] 2 mg PO Q12H PRN 01/23/17 [History] Carbidopa/Levodopa 10/100 [Sinemet 10/100] 1 each PO TID tablet 01/25/17 [Rx] LORazepam [Ativan] 0.25 mg PO BID tablet 01/25/17 [Rx] Aspirin Enteric Coated [Aspirin EC] 81 mg PO DAILY tablet. 01/26/17 [Rx] LevETIRAcetam [Keppra] 250 mg PO Q12HR #60 tablet 01/26/17 [Rx] Allergies/Adverse Reactions: Allergies ciprofloxacin [From Cipro] Allergy (Unknown, Verified 01/23/17 06:36) See Comments unknown reaction/ patient confused Penicillins Allergy (Unknown, Verified 01/23/17 06:37) See Comments reaction unknown/patient confused Certification: Further, I certify that my clinical findings support that this patient is homebound (i.e. absences from home require considerable and taxing effort and are for medical reasons or spiritism services or infrequently or short duration when for other reasons) because: Homebound Reason: Patient requires assistance of a person or device to safely leave home Attestation: My signature below is to certify that this patient is under my care and that I, or nurse practitioner, or a physician's document control assistant working with me, has a face-to -face encounter with this patient.
[2017-01-26] MEDS: Aspirin Enteric Coated 81 MG Tablet PO SCH (10:02)
[2017-01-26] MEDS: *HR* LORazepam 0.5 MG TABLET PO SCH (10:02)
[2017-01-26] MEDS: amLODIPine 5 MG TABLET PO SCH (10:05)
--- NOTE | 2017-01-26 14:56 | Physician Discharge Referral ---
ExtendedCare Referral Info Provider in Charge after Transfer: PCP Institutional Level of Care: Skilled - Diagnosis (1) Epilepsy Status: Acute (2) Abnormal stress test Status: Acute (3) Hyperlipidemia Status: Chronic (4) Hypertension Status: Chronic (5) Parkinsons disease Status: Chronic - Transfer Medications Prescriptions: LevETIRAcetam [Keppra] 250 mg PO Q12HR #60 tablet LORazepam [Ativan] 0.25 mg PO BID #60 tablet Home Medications: Atorvastatin [Lipitor] 20 mg PO HS 01/23/17 [History] Buspirone HCl [Buspar] 20 mg PO BID 01/23/17 [History] Carbidopa/Levodopa [Carbidopa-Levo 10-100 mg Odt] 1 each PO TID 01/23/17 [ History] Citalopram [CeleXA] 20 mg PO DAILY 01/23/17 [History] Cyclobenzaprine [Flexeril] 10 mg PO HS 01/23/17 [History] Ibuprofen [Motrin] 400 mg PO TID PRN 01/23/17 [History] Labetalol HCl 200 mg PO BID 01/23/17 [History] Lisinopril [Zestril] 10 mg PO DAILY 01/23/17 [History] Simvastatin [Zocor] 40 mg PO HS 01/23/17 [History] Tizanidine HCl [Zanaflex] 2 mg PO Q12H PRN 01/23/17 [History] Carbidopa/Levodopa 10/100 [Sinemet 10/100] 1 each PO TID tablet 01/25/17 [Rx] LORazepam [Ativan] 0.25 mg PO BID tablet 01/25/17 [Rx] Aspirin Enteric Coated [Aspirin EC] 81 mg PO DAILY tablet. 01/26/17 [Rx] LORazepam [Ativan] 0.25 mg PO BID #60 tablet 01/26/17 [Rx] LevETIRAcetam [Keppra] 250 mg PO Q12HR #60 tablet 01/26/17 [Rx] Allergies/Adverse Reactions: Allergies ciprofloxacin [From Cipro] Allergy (Unknown, Verified 01/23/17 06:36) See Comments unknown reaction/ patient confused Penicillins Allergy (Unknown, Verified 01/23/17 06:37) See Comments reaction unknown/patient confused - Respiratory Orders Smoking Cessation: Smoking cessation has been advised. For more information, call the [place] Tobacco Quit Line at 8-291-POIH-NOW. - Advance Directives Code Status: Full Code - Rehabiliation Orders Rehab Orders: Evaluation for Physical Therapy Other: Please follow up with her primary care physician in the next 1-2 weeks. Please follow-up with the neurologist, Dr. Finnegan, as scheduled within the next 2 weeks. Continue Keppra 250 mg twice a day. Please return for any new or worsening symptoms. Follow-up with cardiology/Dr. Manley within the next 3 weeks Continue Ativan 0.25 mg twice a day - Diet Orders No Added Salt (LIEN) CERTIFICATION: I certify that the transfer of the above named patient to an Extended Care Facility is necessary for the continuing treatment of the diagnosis listed. The above information is true and accurate reflection of patient's current condition. Confidential - Redisclosure prohibited without a patient's written consent.
== END 2017-01-26 19:30 | disposition home health service (06) | DRG 101 ==
LOC: 2ANU → SUATTDRO 05:11 → 2NENU 01-25 22:29
PROVIDERS: ADMIT Internal Medicine; ATTEND Internal Medicine

== ENCOUNTER 2017-05-08 14:54 | Inpatient (IN) ==
[2017-05-08] MEDS ORDERED: Naloxone 0.4 MG/ML INJ IVP PRN (21:27)
--- NOTE | 2017-05-08 21:27 | Internal Med History&Physical ---
Date of Encounter: 05/08/17 Time of Encounter: 21:27 Assessment and Plan (1) Dilated cbd, acquired Current visit: Yes Status: Acute Unknown Significance, could be age related versus obstruction. Gastroenterology consult for further advice. Monitor LFTs (2) Chest pain Current visit: Yes Status: Acute EKG shows no acute changes. Trend troponins. Telemetry monitoring Qualifiers: Chest pain type: unspecified Qualified Code(s): R07.9 - Chest pain, unspecified (3) Parkinsons disease Current visit: Yes Status: Chronic Continue home medications, when doses confirmed. (4) Hypertension Current visit: Yes Status: Chronic Continue home medications Qualifiers: Hypertension type: essential hypertension Qualified Code(s): I10 - Essential (primary) hypertension Internal Medicine - H&P: HPI Chief complaint: chest pain Admitted From: Hospital to Hospital Transfer Plans for Post Hospital Care: Home History of present illness: Transfer from [facility] Ms. Reno is a 87 year old female With h/o HTN, diverticulosis and parkinsons disease is transferred from [facility] for evaluation of dilated CBD. Per the note from a [facility], patient had chest pain and abdominal pain in the right upper quadrant and right lower quadrant. Imaging data included chest x-ray which was apparently clear. CT scan of the abdomen and pelvis / Ultrasound scan showed dilatation of the CBD measuring 11mm (on USG ) (CT scan showed CBD of 9 mm and also reports prominence of central portion of intrahepatic biliary tree). Radiologist recommended ERCP. Pt was apparently discussed with ham facer, who recommended admission to the hospitalist service. Pt seem to be confused and is not able to give coherent details. No family at the bedside during my evaluation. Patient reports left inframammary chest pain , going laterally. She is not able to describe the pain, severity or associated symptoms. She denies right upper quadrant pain, nausea, vomiting, urinary or bowel problems. CXR reported no acute findings. CT scan of the abdomen and pelvis reported prominence of the common bile duct and central portions of the intrahepatic dilated tree. The exact significance of this is uncertain and this may be in the low gradient. If the biliary obstruction is suspected, ERCP should be considered. There is a large hiatus hernia. There is colonic diverticulosis without evidence of acute diverticulitis. Again there is some thickening of the barrett of the urinary bladder suggesting chronic cystitis. Limited abdominal ultrasound report and dilation of the common bile duct. The exact etiology and significance of this is uncertain. This may be uncomfortable training generalist but distal obstruction cannot be excluded. There is clinical suspicion for biliary obstruction, ERCP should be considered for further evaluation. Gall bladder appears normal. WBC 9.6, hemoglobin 12.5, hematocrit 37.1, platelets 227, lipase 326, sodium 138 , potassium 4.1, BUN 14, creatinine 0.97, calcium 9.4, AST 21, AST 13, and phosphatase 87. Urinalysis is negative for nitrates and leukocyte esterase. Past Med Surg Social Fam HX - Past Medical History Medical history: hyperlipidemia, other Psychiatric history: anxiety, depression - Past Surgical History Surgical History: no surgical history - Social History Smoking Status: Never smoker Smokeless Tobacco Status: No Alcohol use: none Drug use: none - Family History Mother History Unknown: Yes Adopted: No Age: 89 Living Status: Age at : 89 Hx Family Cancer: Yes (unsure of type of cancer) Internal Medicine - H&P: Meds Atorvastatin [Lipitor] 20 mg PO HS 01/23/17 [History] Carbidopa/Levodopa [Carbidopa-Levo 10-100 mg Odt] 1 each PO TID 01/23/17 [ History] Cyclobenzaprine [Flexeril] 10 mg PO HS 01/23/17 [History] Labetalol HCl 200 mg PO BID 01/23/17 [History] Lisinopril [Zestril] 10 mg PO DAILY 01/23/17 [History] Tizanidine HCl [Zanaflex] 2 mg PO Q12H PRN 01/23/17 [History] Carbidopa/Levodopa 10/100 [Sinemet 10/100] 1 each PO TID tablet 01/25/17 [Rx] Aspirin Enteric Coated [Aspirin EC] 81 mg PO DAILY tablet. 01/26/17 [Rx] LORazepam [Ativan] 0.25 mg PO BID #60 tablet 01/26/17 [Rx] levETIRAcetam [Keppra] 250 mg PO Q12HR #60 tablet 01/26/17 [Rx] Allergies ciprofloxacin [From Cipro] Allergy (Unknown, Verified 01/23/17 06:36) See Comments unknown reaction/ patient confused Penicillins Allergy (Unknown, Verified 01/23/17 06:37) See Comments reaction unknown/patient confused ROS unobtainable: due to mental status - Constitutional Vitals: Temp Pulse Resp BP Pulse Ox 98.7 F 72 14 171/76 96 05/08/17 20:30 05/08/17 20:30 05/08/17 20:30 05/08/17 20:30 05/08/17 20:30 Exam: General: Not in acute distress at the time of my evaluation. confused HEENT: Oral mucosa is moist. No conjunctival palor or scleral icterus Neck: No obvious neck swellings Lungs: Clear to auscultation Cardiac: Regular rate and rhythm. No significant murmurs Abdomen: Soft, non tender. Bowel sounds present Genitourinary: No hanson catheter Neurological: Confused. No gross localizing deficits Psych: Not aggressive or agitated Extremities: no significant leg edema Skin: No generalized rash Internal Med - H&P Results - Labs CBC & Chem 7: 05/09/17 04:37 05/09/17 04:37 Labs: WBC 9.6, hemoglobin 12.5, hematocrit 37.1, platelets 227, lipase 326, sodium 138 , potassium 4.1, BUN 14, creatinine 0.97, calcium 9.4, AST 21, AST 13, and phosphatase 87. Urinalysis is negative for nitrates and leukocyte esterase. - EKG Data -: EKG Interpreted by Myself EKG shows normal: sinus rhythm - EKG Data EKG comments: MIESHA 05/09/17 09:27 - Impressions CXR reported no acute findings. CT scan of the abdomen and pelvis reported prominence of the common bile duct and central portions of the intrahepatic dilated tree. The exact significance of this is uncertain and this may be in the low gradient. If the biliary obstruction is suspected, ERCP should be considered. There is a large hiatus hernia. There is colonic diverticulosis without evidence of acute diverticulitis. Again there is some thickening of the barrett of the urinary bladder suggesting chronic cystitis. Limited abdominal ultrasound report and dilation of the common bile duct. The exact etiology and significance of this is uncertain. This may be uncomfortable training generalist but distal obstruction cannot be excluded. There is clinical suspicion for biliary obstruction, ERCP should be considered for further evaluation. Gall bladder appears normal.
[2017-05-09 00:45] LABS: Bilirubin,Urine Negative (Negative); Blood,Urine Negative (Negative); Clarity,Urine Clear (Clear); Color,Urine Yellow (Yellow); Glucose,Urine (UA) Normal (Normal); Ketones,Urine 15 mg/dL (Negative); Leukocyte Esterase,Urine Negative (Negative); Nitrite,Urine Negative (Negative); Protein,Urine Negative (Neg-Trace); Specific Gravity,Urine 1.017 (1.010-1.025); Urobilinogen,Urine Normal (Normal)
[2017-05-09 05:27] LABS: Basophils % 0.4 %; Eosinophils % 0.5 %; Hematocrit 31.3 % (35.3-44.9); Hemoglobin 10.2 g/dL (11.5-15.4); Immature Granulocytes % 0.3 % (0-4); Lymphocytes # 1.6 K/mcL (0.6-4.6); Lymphocytes % 21.5 %; Mean Corpuscular HGB Conc 32.6 g/dL (31.6-35.5); Mean Corpuscular Hemoglobin 29.5 pg (28.0-33.3); Mean Corpuscular Volume 90.5 fL (83.0-100.0); Monocytes # 0.8 K/mcL (0.0-1.3); Monocytes % 10.3 %; Neutrophils # 4.9 K/mcL (1.6-8.9); Platelet Count 192 K/mcL (140-400); Red Blood Count 3.46 M/mcL (3.82-4.97); Red Cell Distribution Width 13.8 % (11.5-14.5)
[2017-05-09 05:49] LABS: Alanine Aminotransferase 10 Units/L (0-55); Albumin/Globulin Ratio 1.2 (1.1-2.2); Alkaline Phosphatase 67 Units/L (38-126); Aspartate Amino Transferase 14 Units/L (5-34); BUN/Creatinine Ratio 15 (6-26); Bilirubin,Total 0.4 mg/dL (0.2-1.2); Blood Urea Nitrogen 11 mg/dL (7-20); Calcium 8.1 mg/dL (8.6-10.8); Carbon Dioxide 22 mEq/L (19-29); Chloride 110 mEq/L (98-109); Chol/HDL Ratio 3.6 (0-4.9); Cholesterol 128 mg/dL (< 200); Globulin 2.5 g/dL (2.4-3.5); Glucose 83 mg/dL (70-99); HDL Cholesterol 36 mg/dL (40-59); LDL Cholesterol,Calculated 72 mg/dL (0-99); Magnesium 1.9 mg/dL (1.6-2.6); Osmolality,Calculated 287 (280-300); Potassium 3.8 mEq/L (3.5-4.5); Sodium 139 mEq/L (136-145); Total Protein 5.5 g/dL (6.0-8.3); Triglycerides 98 mg/dL (< 150); eGFR For African Americans > 60 (> 60); eGFR For Non-African Americans > 60 (> 60)
[2017-05-09] MEDS ORDERED: tiZANidine 4 MG TABLET PO PRN (09:29)
[2017-05-09] MEDS ORDERED: *HR* LORazepam 0.5 MG TABLET PO PRN (09:29)
[2017-05-09] MEDS: levETIRAcetam 250 MG TABLET PO SCH ×2 (10:11→18:10)
[2017-05-09] MEDS: Aspirin Enteric Coated 81 MG Tablet PO SCH (10:12)
--- NOTE | 2017-05-09 10:43 | Electrocardiograph Report ---
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
--- NOTE | 2017-05-09 12:10 | Event Note ---
Addendum entered and electronically signed by Francisco Orozco CNP 05/09/17 15 :06: MRCP shows no CBD stones, recommend surgical consult. Full consult from us tomorrow. Original Note: <Francisco Orozco - Last Filed: 05/09/17 12:08> Date of Encounter: 05/09/17 Time of Encounter: 12:08 Chart review, full consult tomorrow. Plan for an MRCP today. Dr. Wright to review images. Consider EUS. <Yoanna Wright - Last Filed: 05/09/17 18:49> Date of Encounter: 05/09/17 Time of Encounter: 18:00 Patient MRCP reviewed and no CBD stone no need for ERCP symptomatic treatment for now
--- NOTE | 2017-05-09 17:14 | Internal Med Progress Note ---
Date of Encounter: 05/09/17 Time of Encounter: 17:12 - Assessment and plan (1) Epilepsy Current Visit: No Status: Acute Qualifiers: Epilepsy type: unspecified Intractability: not intractable Status epilepticus: without status epilepticus Qualified Code(s): G40.909 - Epilepsy , unspecified, not intractable, without status epilepticus (2) Parkinsons disease Current Visit: Yes Status: Chronic (3) Hypertension Current Visit: Yes Status: Chronic Qualifiers: Hypertension type: essential hypertension Qualified Code(s): I10 - Essential (primary) hypertension (4) Hyperlipidemia Current Visit: No Status: Chronic Qualifiers: Hyperlipidemia type: unspecified Qualified Code(s): E78.5 - Hyperlipidemia , unspecified (5) DVT prophylaxis Current Visit: No Status: Acute (6) Dilated cbd, acquired Current Visit: Yes Status: Acute (7) Chest pain Current Visit: Yes Status: Acute Qualifiers: Chest pain type: unspecified Qualified Code(s): R07.9 - Chest pain, unspecified - Subjective Interval history: patient Mrs.Helen Josette Reno is an 87-year-old femalewho was sent from [facility] ER Patient came in with chest pain and abdo and initial cardiac enzymes and EK WERE NOTED UNREMARKABLE THEREFORECT abdomen was performed which showedpossible dilatation of bile duct and patient wastransferred for further evaluation. General surgery was consulted who has s and an MRCP performed which showed common bile duct 8 mm which is consideredconsidering her age No gallstones or thickening of gallblad Interestingly when I asked the patient to show me wher at Xiphisternal joint - Constitutional Vitals: Temp Pulse Resp BP Pulse Ox 98.1 F 64 16 139/67 95 05/09/17 12:20 05/09/17 12:20 05/09/17 12:20 05/09/17 12:20 05/09/17 12:20 - Head Head exam: Present: atraumatic, normocephalic - Eye Eye exam: Present: PERRL, conjuntiva pink, sclera anicteric Pupils: Present: PERRL - Neck Neck exam general surgery: Present: supple, trachea midline. Absent: lymphadenopathy - Respiratory Respiratory exam: Present: CTAB. Absent: accessory muscle use, rales, rhonchi, wheezes - Cardiovascular Cardiovascular exam: Present: RRR, +S1, +S2. Absent: diastolic murmur, gallop, rubs, systolic murmur - GI/Abdominal GI/Abdominal exam: Present: normal bowel sounds, soft, no peritoneal signs. Absent: distended, tenderness - Extremities Exam Extremities exam: Present: warm, radial pulses palpable and symetrical. Absent : calf tenderness, cyanotic, pedal edema - Neurological Exam Neurological exam: Present: CN II-XII intact, oriented X3, no focal deficits. Absent: pronater drift, facial droop, speech deficit Additional comments: he hasno significant tremors - Skin Skin exam: Present: dry, intact Internal Medicine: Result - Labs CBC & Chem 7: 05/09/17 04:37 05/09/17 04:37 Labs: Short CBC 05/09/17 Range/Units 04:37 WBC 7.3 (4.3-11.1) K/mcL Hgb 10.2 L (11.5-15.4) g/dL Hct 31.3 L (35.3-44.9) % Plt Count 192 (140-400) K/mcL Neutrophils # 4.9 (1.6-8.9) K/mcL BMP 05/09/17 04:37 Sodium 139 Potassium 3.8 Chloride 110 H Carbon Dioxide 22 BUN 11 Creatinine 0.74 Glucose 83 Calcium 8.1 L Cardiac Enzymes 05/08/17 05/09/17 05/09/17 Range/Units 22:31 04:37 09:49 Troponin I 0.01 0.02 0.01 (0-0.03) ng/mL Liver Function 05/09/17 Range/Units 04:37 Total Bilirubin 0.4 (0.2-1.2) mg/dL AST 14 (5-34) Units/L ALT 10 (0-55) Units/L Alkaline Phosphatase 67 (38-126) Units/L Albumin 3.0 L (3.5-5.0) g/dL Urine 05/08/17 Range/Units 21:00 Urine Color Yellow (Yellow) Urine Clarity Clear (Clear) Urine pH 6.0 (5.0-8.0) pH Units Ur Specific [place] 1.017 (1.010-1.025) Urine Protein Negative (Neg-Trace) mg/dL Urine Glucose (UA) Normal (Normal) mg/dL - Impressions Impressions Abdomen MRI 05/09/17 10:39 IMPRESSION: 1. Mild intra- and extrahepatic biliary dilatation. Common bile duct measures up to 8 mm, which may be a normal variant for the patient's age of 87. No choledocholithiasis. 2. No cholelithiasis. 3. Large hiatal hernia. D/ / 05/09/2017 13:57:14 Neena Bower MD / jailyn Interpreting Provider: Neena Bower MD Consult Discharge Plan - Plan Referrals: Brock Cr DO [Primary Care Provider] -
[2017-05-09] MEDS ORDERED: *HR* HYDROcodone/Acet 5/325 mg TABLET PO ONE (21:52)
[2017-05-10 05:10] LABS: Basophils % 0.7 %; Eosinophils # 0.2 K/mcL (0.0-0.6); Eosinophils % 2.4 %; Hematocrit 30.2 % (35.3-44.9); Hemoglobin 9.8 g/dL (11.5-15.4); Immature Granulocytes % 0.2 % (0-4); Lymphocytes # 1.7 K/mcL (0.6-4.6); Lymphocytes % 28.2 %; Mean Corpuscular HGB Conc 32.5 g/dL (31.6-35.5); Mean Corpuscular Hemoglobin 29.8 pg (28.0-33.3); Mean Corpuscular Volume 91.8 fL (83.0-100.0); Mean Platelet Volume 10.9 fL (9.4-12.4); Monocytes # 0.7 K/mcL (0.0-1.3); Monocytes % 10.9 %; Neutrophils # 3.5 K/mcL (1.6-8.9); Platelet Count 176 K/mcL (140-400); Red Blood Count 3.29 M/mcL (3.82-4.97); Red Cell Distribution Width 13.5 % (11.5-14.5); Segmented Neutrophils % 57.6 %
[2017-05-10 05:35] LABS: Albumin 2.9 g/dL (3.5-5.0); Albumin/Globulin Ratio 1.2 (1.1-2.2); Alkaline Phosphatase 65 Units/L (38-126); Aspartate Amino Transferase 12 Units/L (5-34); BUN/Creatinine Ratio 16 (6-26); Bilirubin,Total 0.5 mg/dL (0.2-1.2); Blood Urea Nitrogen 11 mg/dL (7-20); Calcium 8.2 mg/dL (8.6-10.8); Carbon Dioxide 24 mEq/L (19-29); Chloride 109 mEq/L (98-109); Globulin 2.4 g/dL (2.4-3.5); Glucose 87 mg/dL (70-99); Osmolality,Calculated 285 (280-300); Potassium 3.9 mEq/L (3.5-4.5); Sodium 138 mEq/L (136-145); Total Protein 5.3 g/dL (6.0-8.3); eGFR For African Americans > 60 (> 60); eGFR For Non-African Americans > 60 (> 60)
[2017-05-10] MEDS: levETIRAcetam 250 MG TABLET PO SCH ×2 (05:37→17:56)
[2017-05-10 05:38] LABS: Alanine Aminotransferase < 6 Units/L (0-55)
[2017-05-10] MEDS: Aspirin Enteric Coated 81 MG Tablet PO SCH (09:42)
--- NOTE | 2017-05-10 11:37 | Gastroenterology Consult Note ---
<Francisco Orozco - Last Filed: 05/10/17 11:34> Date of Encounter: 05/10/17 Time of Encounter: 10:25 - Assessment and plan (1) Dilated cbd, acquired Current Visit: Yes Status: Acute Assessment and plan: While at [facility], ultrasound showed dilatation of the CBD measuring 11mm and CT abdomen showed CBD of 9 mm and also reports prominence of central portion of intrahepatic biliary tree. LFTs normal, continue to monitor. MRCP complete yesterday with CBD 8mm and no choledocholithiasis or cholelithiasis. No indication for ERCP or surgical consult. - Time Spent With Patient Total time spent is greater than 50% in coordination of care (as documented) at patient's floor/unit and/or counseling patient: GI History of Present Illness - Data of Consult Patient: new to practice Consult date: 05/10/17 Requesting Physician: Dipesh Carlos - Consult Narrative Reason for consult: dilated CBD History of present illness: Ms. Reno is a 87 year old female with PMHx of HTN, diverticulosis, and Parkinson's disease who was transferred from [facility] for evaluation of dilated CBD. While at [facility], ultrasound showed dilatation of the CBD measuring 11mm and CT abdomen showed CBD of 9 mm and also reports prominence of central portion of intrahepatic biliary tree. We were consulted to evaluate her dilated CBD. LFTs have been within normal limits. MRCP complete yesterday with CBD 8mm and no choledocholithiasis or cholelithiasis. Procedures: Colonoscopy 03/22/2001 Dr. Arroyo: Hyperplastic polyp, rectal villoglandular polyp NSAIDs: ASA Anticoagulation: None Past Med Surg Social Fam HX - Past Medical History Medical history: hyperlipidemia, other Psychiatric history: anxiety, depression - Past Surgical History Surgical History: no surgical history - Social History Smoking Status: Never smoker Smokeless Tobacco Status: No Alcohol use: none Drug use: none - Family History Mother History Unknown: Yes Adopted: No Age: 89 Living Status: Age at : 89 Hx Family Cancer: Yes (unsure of type of cancer) - Gastrointestinal Gastrointestinal: Present: as per HPI - Constitutional Constitutional: as per HPI - EENT Eyes: as per HPI Ears: Present: as per HPI Nose, mouth and throat: Present: as per HPI - Cardiovascular Cardiovascular ROS: Present: as per HPI - Respiratory Respiratory IM: Present: as per HPI - Genitourinary Genitourinary: Absent: change in color, Urinary frequency - Neurological ROS Neurological GI: Present: as per HPI - Hematologic/Lymphatic Hematologic/Lymphatic pediatric: Present: as per HPI - Musculoskeletal Musculoskeletal ROS GI: Present: as per HPI - Integumentary Integumentary GI: Present: as per HPI - Psychiatric ROS Psychiatric GI: Present: as per HPI - Endocrine Endocrine IM: Present: as per HPI - Constitutional Vitals: Temp Pulse Resp BP Pulse Ox 98.3 F 63 16 115/58 97 05/10/17 10:35 05/10/17 10:35 05/10/17 10:35 05/10/17 10:35 05/10/17 10:35 General appearance: Present: cooperative, A&O X 3, no acute distress, answers questions appropriately - Head Head exam: Present: atraumatic, normocephalic - Eye Eye exam: Present: normal appearance, sclera anicteric - ENT ENT exam: Present: mucous membranes moist - Neck Neck exam general surgery: Present: normal inspection, trachea midline - Respiratory Respiratory exam: Present: decreased breath sounds, CTAB - Cardiovascular Cardiovascular exam: Present: RRR, +S1, +S2 - GI/Abdominal GI/Abdominal exam: Present: soft, no peritoneal signs. Absent: distended, firm , guarding, tenderness - Rectal Rectal exam: Present: deferred - Extremities Exam Extremities exam: Present: warm - Neurological Exam Neurological exam: Present: no focal deficits - Psychiatric Psychiatric exam: Present: normal affect, normal mood - Skin Skin exam: Present: dry, intact, normal color, warm Results - Labs CBC & Chem 7: 05/10/17 04:33 05/10/17 04:33 Labs: Last Result Calcium 8.2 mg/dL (8.6-10.8) L 05/10/17 04:33 Troponin I 0.01 ng/mL (0-0.03) 05/09/17 09:49 Triglycerides 98 mg/dL (< 150) 05/09/17 04:37 Entire Visit Hgb 9.8 g/dL (11.5-15.4) L 05/10/17 04:33 Hct 30.2 % (35.3-44.9) L 05/10/17 04:33 Total Bilirubin 0.5 mg/dL (0.2-1.2) 05/10/17 04:33 AST 12 Units/L (5-34) 05/10/17 04:33 ALT < 6 Units/L (0-55) 05/10/17 04:33 - Impressions Impressions Abdomen MRI 05/09/17 10:39 IMPRESSION: 1. Mild intra- and extrahepatic biliary dilatation. Common bile duct measures up to 8 mm, which may be a normal variant for the patient's age of 87. No choledocholithiasis. 2. No cholelithiasis. 3. Large hiatal hernia. D/ / 05/09/2017 13:57:14 Neena Bower MD / jailyn Interpreting Provider: Neena Bower MD Consult Discharge Plan - Plan Referrals: Brock Cr DO [Primary Care Provider] - <Yoanna Wright - Last Filed: 05/10/17 14:07> Date of Encounter: 05/10/17 Time of Encounter: 13:45 - Time Spent With Patient Total time spent is greater than 50% in coordination of care (as documented) at patient's floor/unit and/or counseling patient: GI History of Present Illness - Data of Consult Requesting Physician: Dipesh Carlos - Consult Narrative History of present illness: Ms. Reno is a 87 year old female - Constitutional Vitals: Temp Pulse Resp BP Pulse Ox 98.3 F 63 16 115/58 97 05/10/17 10:35 05/10/17 10:35 05/10/17 10:35 05/10/17 10:35 05/10/17 10:35 Results - Labs CBC & Chem 7: 05/10/17 04:33 05/10/17 04:33 Labs: Last Result Calcium 8.2 mg/dL (8.6-10.8) L 05/10/17 04:33 Troponin I 0.01 ng/mL (0-0.03) 05/09/17 09:49 Triglycerides 98 mg/dL (< 150) 05/09/17 04:37 Entire Visit Hgb 9.8 g/dL (11.5-15.4) L 05/10/17 04:33 Hct 30.2 % (35.3-44.9) L 05/10/17 04:33 Total Bilirubin 0.5 mg/dL (0.2-1.2) 05/10/17 04:33 AST 12 Units/L (5-34) 05/10/17 04:33 ALT < 6 Units/L (0-55) 05/10/17 04:33 - Impressions Impressions Abdomen MRI 05/09/17 10:39 IMPRESSION: 1. Mild intra- and extrahepatic biliary dilatation. Common bile duct measures up to 8 mm, which may be a normal variant for the patient's age of 87. No choledocholithiasis. 2. No cholelithiasis. 3. Large hiatal hernia. D/ / 05/09/2017 13:57:14 Neena Bower MD / jailyn Interpreting Provider: Neena Bower MD - Attending Attestation I examined this patient and my medical decision-making was reviewed with the ICE CARVER/PA/Advanced Practice Nurse/Resident Physician. I agree with the documented findings, disposition and treatment plan as described except to the extent set forth below. MRCP negative for CBD stone. Patient abdominal pain has resolved. No indication for ERCP.
--- NOTE | 2017-05-10 16:09 | Internal Med Progress Note ---
Date of Encounter: 05/10/17 Time of Encounter: 16:07 - Assessment and plan (1) Epilepsy Current Visit: No Status: Acute Qualifiers: Epilepsy type: unspecified Intractability: not intractable Status epilepticus: without status epilepticus Qualified Code(s): G40.909 - Epilepsy , unspecified, not intractable, without status epilepticus (2) Parkinsons disease Current Visit: No Status: Chronic Assessment and plan: unsteady due to due to Parkinson (3) Hypertension Current Visit: Yes Status: Chronic Assessment and plan: Continue home medications Qualifiers: Hypertension type: essential hypertension Qualified Code(s): I10 - Essential (primary) hypertension (4) Hyperlipidemia Current Visit: No Status: Chronic Assessment and plan: Continue home medication Qualifiers: Hyperlipidemia type: unspecified Qualified Code(s): E78.5 - Hyperlipidemia , unspecified (5) DVT prophylaxis Current Visit: No Status: Acute Assessment and plan: Start Lovenox and compression devices (6) Dilated cbd, acquired Current Visit: Yes Status: Acute Assessment and plan: The CT scan showed dilated bile that however MRI showed only 8 mm dilatation with intrahepatic biliary dilatation also. No stone or gallbladder wall thickening. No surgical intervention is planned. (7) Chest pain Current Visit: Yes Status: Acute Assessment and plan: It seems like what she was wrestling as chest pain was actually substernal abdominal pain in the epigastric area where she is actually tender. Her cardiac enzymes and EKG were unremarkable. Qualifiers: Chest pain type: unspecified Qualified Code(s): R07.9 - Chest pain, unspecified - Subjective Interval history: patient Mrs.Helen Josette Reno is an 87-year-old femalewho was sent from [facility] ER Patient came in with chest pain and abdo and initial cardiac enzymes and EK WERE NOTED UNREMARKABLE THEREFORECT abdomen was performed which showedpossible dilatation of bile duct and patient wastransferred for further evaluation. General surgery was consulted who has s and an MRCP performed which showed common bile duct 8 mm which is consideredconsidering her age No gallstones or thickening of gallblad Interestingly when I asked the patient to show me wher at Xiphisternal joint - Constitutional Vitals: Temp Pulse Resp BP Pulse Ox 97.4 F L 70 16 134/82 97 05/10/17 14:23 05/10/17 14:23 05/10/17 14:23 05/10/17 14:23 05/10/17 14:23 - Head Head exam: Present: atraumatic, normocephalic - Eye Eye exam: Present: PERRL, conjuntiva pink, sclera anicteric Pupils: Present: PERRL - Respiratory Respiratory exam: Present: CTAB. Absent: accessory muscle use, rales, rhonchi, wheezes - Cardiovascular Cardiovascular exam: Present: RRR, +S1, +S2. Absent: diastolic murmur, gallop, rubs, systolic murmur - GI/Abdominal GI/Abdominal exam: Present: normal bowel sounds, soft, no peritoneal signs. Absent: distended, tenderness - Extremities Exam Extremities exam: Present: warm, radial pulses palpable and symetrical. Absent : calf tenderness, cyanotic, pedal edema - Neurological Exam Neurological exam: Present: CN II-XII intact, oriented X3, no focal deficits. Absent: pronater drift, facial droop, speech deficit - Skin Skin exam: Present: dry, intact Internal Medicine: Result - Labs CBC & Chem 7: 05/10/17 04:33 05/10/17 04:33 Labs: Short CBC 05/10/17 Range/Units 04:33 WBC 6.1 (4.3-11.1) K/mcL Hgb 9.8 L (11.5-15.4) g/dL Hct 30.2 L (35.3-44.9) % Plt Count 176 (140-400) K/mcL Neutrophils # 3.5 (1.6-8.9) K/mcL BMP 05/10/17 04:33 Sodium 138 Potassium 3.9 Chloride 109 Carbon Dioxide 24 BUN 11 Creatinine 0.70 Glucose 87 Calcium 8.2 L Liver Function 05/10/17 Range/Units 04:33 Total Bilirubin 0.5 (0.2-1.2) mg/dL AST 12 (5-34) Units/L ALT < 6 (0-55) Units/L Alkaline Phosphatase 65 (38-126) Units/L Albumin 2.9 L (3.5-5.0) g/dL - VTE Documentation of Mechanical Device: Intermittent pneumatic compression device Consult Discharge Plan - Plan Referrals: Brock Cr DO [Primary Care Provider] -
[2017-05-11] MEDS: levETIRAcetam 250 MG TABLET PO SCH ×2 (05:46→16:22)
[2017-05-11 06:24] LABS: Basophils % 0.6 %; Eosinophils # 0.2 K/mcL (0.0-0.6); Eosinophils % 2.4 %; Hematocrit 33.5 % (35.3-44.9); Hemoglobin 10.8 g/dL (11.5-15.4); Immature Granulocytes % 0.3 % (0-4); Immature Platelets 3.9 % (1.1-6.1); Lymphocytes # 1.5 K/mcL (0.6-4.6); Mean Corpuscular HGB Conc 32.2 g/dL (31.6-35.5); Mean Corpuscular Hemoglobin 29.6 pg (28.0-33.3); Mean Corpuscular Volume 91.8 fL (83.0-100.0); Mean Platelet Volume 10.6 fL (9.4-12.4); Monocytes # 0.5 K/mcL (0.0-1.3); Monocytes % 8.4 %; Platelet Count 196 K/mcL (140-400); Red Blood Count 3.65 M/mcL (3.82-4.97); Red Cell Distribution Width 13.8 % (11.5-14.5); Segmented Neutrophils % 64.3 %
[2017-05-11 06:41] LABS: Alanine Aminotransferase 7 Units/L (0-55); Albumin/Globulin Ratio 1.2 (1.1-2.2); Alkaline Phosphatase 73 Units/L (38-126); Aspartate Amino Transferase 11 Units/L (5-34); BUN/Creatinine Ratio 13 (6-26); Bilirubin,Total 0.5 mg/dL (0.2-1.2); Blood Urea Nitrogen 9 mg/dL (7-20); Calcium 8.3 mg/dL (8.6-10.8); Carbon Dioxide 24 mEq/L (19-29); Chloride 107 mEq/L (98-109); Globulin 2.6 g/dL (2.4-3.5); Glucose 106 mg/dL (70-99); Osmolality,Calculated 285 (280-300); Potassium 3.7 mEq/L (3.5-4.5); Sodium 138 mEq/L (136-145); Total Protein 5.6 g/dL (6.0-8.3); eGFR For African Americans > 60 (> 60); eGFR For Non-African Americans > 60 (> 60)
[2017-05-11] MEDS: Aspirin Enteric Coated 81 MG Tablet PO SCH (07:42)
--- NOTE | 2017-05-11 13:10 | Physician Discharge Referral ---
ExtendedCare Referral Info Transfer To: [facility] Provider in Charge: teresa Provider in Charge after Transfer: PCP Institutional Level of Care: Skilled - Diagnosis (1) Epilepsy Status: Acute (2) Parkinsons disease Status: Chronic (3) Hypertension Status: Chronic (4) Hyperlipidemia Status: Chronic (5) DVT prophylaxis Status: Acute (6) Dilated cbd, acquired Status: Acute (7) Chest pain Status: Acute - Transfer Medications Home Medications: Atorvastatin [Lipitor] 20 mg PO HS 01/23/17 [History] Cyclobenzaprine [Flexeril] 10 mg PO HS 01/23/17 [History] Labetalol HCl 200 mg PO BID 01/23/17 [History] Lisinopril [Zestril] 10 mg PO DAILY 01/23/17 [History] Tizanidine HCl [Zanaflex] 2 mg PO Q12H PRN 01/23/17 [History] Aspirin Enteric Coated [Aspirin EC] 81 mg PO DAILY tablet. 01/26/17 [Rx] Carbidopa/Levodopa 10/100 [Sinemet 10/100] 1 tab PO TID 05/09/17 [History] Allergies/Adverse Reactions: Allergies ciprofloxacin [From Cipro] Allergy (Unknown, Verified 01/23/17 06:36) See Comments unknown reaction/ patient confused Penicillins Allergy (Unknown, Verified 01/23/17 06:37) See Comments reaction unknown/patient confused - Respiratory Orders Smoking Cessation: Smoking cessation has been advised. For more information, call the [place] Tobacco Quit Line at 3-751-PFYH-NOW. CERTIFICATION: I certify that the transfer of the above named patient to an Extended Care Facility is necessary for the continuing treatment of the diagnosis listed. The above information is true and accurate reflection of patient's current condition. Confidential - Redisclosure prohibited without a patient's written consent.
--- NOTE | 2017-05-11 13:19 | Discharge Summary ---
Date of Encounter: 05/11/17 Time of Encounter: 13:11 - Discharge Diagnosis (1) Epilepsy Priority: Secondary Status: Acute Qualifiers: Epilepsy type: unspecified Intractability: not intractable Status epilepticus: without status epilepticus Qualified Code(s): G40.909 - Epilepsy , unspecified, not intractable, without status epilepticus (2) Parkinsons disease Priority: Secondary Status: Chronic (3) Hypertension Priority: Secondary Status: Chronic Qualifiers: Hypertension type: essential hypertension Qualified Code(s): I10 - Essential (primary) hypertension (4) Hyperlipidemia Priority: Secondary Status: Chronic Qualifiers: Hyperlipidemia type: unspecified Qualified Code(s): E78.5 - Hyperlipidemia , unspecified (5) DVT prophylaxis Priority: Secondary Status: Acute (6) Dilated cbd, acquired Priority: Primary Status: Acute (7) Chest pain Priority: Primary Status: Acute Qualifiers: Chest pain type: unspecified Qualified Code(s): R07.9 - Chest pain, unspecified - Discharge Medications Prescriptions: levETIRAcetam [Keppra] 250 mg PO Q12HR #60 tablet Lisinopril [Zestril] 20 mg PO DAILY #30 tablet Omeprazole [PriLOSEC] 20 mg PO BIDAC #30 capsule. Home Medications: Atorvastatin [Lipitor] 20 mg PO HS 01/23/17 [History] Labetalol HCl 200 mg PO BID 01/23/17 [History] Aspirin Enteric Coated [Aspirin EC] 81 mg PO DAILY tablet. 01/26/17 [Rx] Carbidopa/Levodopa 10/100 [Sinemet 10/100] 1 tab PO TID 05/09/17 [History] Lisinopril [Zestril] 20 mg PO DAILY #30 tablet 05/11/17 [Rx] Omeprazole [PriLOSEC] 20 mg PO BIDAC #30 capsule. 05/11/17 [Rx] levETIRAcetam [Keppra] 250 mg PO Q12HR #60 tablet 05/11/17 [Rx] Allergies/Adverse Reactions: Allergies ciprofloxacin [From Cipro] Allergy (Unknown, Verified 01/23/17 06:36) See Comments unknown reaction/ patient confused Penicillins Allergy (Unknown, Verified 01/23/17 06:37) See Comments reaction unknown/patient confused Procedures/tests Complete & Pending: Procedures Performed prior 72 hours Category Date Time Status MRCP [MR abdomen wo con] [MR] Stat MRI 05/09/17 10:39 Completed ECG 12 lead ECG [ECG] Stat Y 05/08/17 21:27 Completed Date of admission: 05/10/17 16:02 Primary care physician: Brock Cr, Consults: 05/09/17 07:45 Consult to Gastroenterology [CONS] Routine Consulting Provider: Gastroenterology [place] Reason for Consult: Dilated CBD Call Completed: No 05/10/17 09:49 Consult to Occupational Therapy [CONS] Routine Comment: Evaluate, develop and implement POC Reason for Consult: weakness Consult to Physical Therapy [CONS] Routine Comment: Evaluate, develop and implement POC Reason for Consult: weakness 05/10/17 15:21 Consult to Clinical Interviewer [CONS] Routine Reason for SW Consult: discharge planning; patient wants to go to [address] [place] [address] Discharging clinician: Dipesh Carlos Anticipated date of discharge: 05/11/17 - Patient Status Disposition: Transfer SNF Condition: Fair Overall status at discharge: patient is back to baseline - Discharge Instructions Follow Up With: Brock Cr DO [Primary Care Provider] - - Diet and Activity Activity: increase activity as tolerated Diet: advance to your usual diet Interval History: Mrs. Elba Reno is an 87-year-old female who came to hold the ER with abdominal pain. A CT abdomen showed dilated bile duct and she was transferred for ERCP. However MRI of the abdomen showed bilateral only 8 mm which considering her age is not too significant. Gastroenterology was consulted. Patient to cardiac enzymes and EKG were unremarkable overall she seems to be tolerating food very well and her symptoms have resolved at this point and bowel movement are regular. She can restart her home medication. She was evaluated by physical therapy who recommended continuation. She has underlying seizure disorder and also Parkinson disease. She is recommended to follow with her family doctor. She takes A lot of muscle relaxer including Flexeril and Zanaflex and I think she does not need either of those so I DC'd it. Also her blood pressure was on the higher side so I increased her lisinopril to 20 mg daily. Patient plans to be discharged. Hospital course: Ms. Reno is a 87 year old female - Time Spent with Patient Total time spent providing and/or coordinating discharge services: Greater than 30 minutes - Constitutional Vitals: Temp Pulse Resp BP Pulse Ox 97.7 F 69 18 160/88 99 05/11/17 11:27 05/11/17 11:27 05/11/17 11:27 05/11/17 11:27 05/11/17 11:27 - Head Head exam: Present: atraumatic, normocephalic - Eye Eye exam: Present: PERRL, conjuntiva pink, sclera anicteric Pupils: Present: PERRL - Neck Neck exam general surgery: Present: supple, trachea midline. Absent: lymphadenopathy - Respiratory Respiratory exam: Present: CTAB. Absent: accessory muscle use, rales, rhonchi, wheezes - Cardiovascular Cardiovascular exam: Present: RRR, +S1, +S2. Absent: diastolic murmur, gallop, rubs, systolic murmur - GI/Abdominal GI/Abdominal exam: Present: normal bowel sounds, soft, no peritoneal signs. Absent: distended, tenderness - Extremities Exam Extremities exam: Present: warm, radial pulses palpable and symetrical. Absent : calf tenderness, cyanotic, pedal edema - Neurological Exam Neurological exam: Present: CN II-XII intact, oriented X3, no focal deficits. Absent: pronater drift, facial droop, speech deficit Additional comments: H and is quite frail and shaking quite a bit unable to keep balance by herself and needed support. Apparently physical therapy was able to get her walk with the help of walker and also it was reported that nurses have seen her getting out of bed and ambulate by herself. - Skin Skin exam: Present: dry, intact - VTE Documentation of Mechanical Device: Intermittent pneumatic compression device
[2017-05-11 18:46] VITALS: BP 168/79
== END 2017-05-11 19:11 | DRG 446 ==
LOC: 3ANU
PROVIDERS: ADMIT Internal Medicine; ATTEND Internal Medicine

== ENCOUNTER 2018-01-03 15:31 | Observation (INO) ==
[2018-01-03 16:57] LABS: Basophils # 0.1 K/mcL (0.0-0.2); Basophils % 0.9 %; Eosinophils # 0.4 K/mcL (0.0-0.6); Eosinophils % 6.2 %; Hematocrit 34.2 % (35.3-44.9); Hemoglobin 11.1 g/dL (11.5-15.4); Immature Granulocytes % 0.2 % (0-4); Lymphocytes # 1.9 K/mcL (0.6-4.6); Lymphocytes % 29.1 %; Mean Corpuscular HGB Conc 32.5 g/dL (31.6-35.5); Mean Corpuscular Hemoglobin 28.8 pg (28.0-33.3); Mean Corpuscular Volume 88.6 fL (83.0-100.0); Mean Platelet Volume 10.1 fL (9.4-12.4); Monocytes # 0.7 K/mcL (0.0-1.3); Monocytes % 9.8 %; Neutrophils # 3.6 K/mcL (1.6-8.9); Platelet Count 277 K/mcL (140-400); Red Blood Count 3.86 M/mcL (3.82-4.97); Red Cell Distribution Width 13.3 % (11.5-14.5); Segmented Neutrophils % 53.8 %
[2018-01-03 17:13] LABS: Alanine Aminotransferase 11 Units/L (7-52); Albumin 3.8 g/dL (3.5-5.7); Albumin/Globulin Ratio 1.4 (1.1-2.2); Alkaline Phosphatase 78 Units/L (34-104); Aspartate Amino Transferase 16 Units/L (13-39); BUN/Creatinine Ratio 19 (6-26); Bilirubin,Indirect 0.6 mg/dL (0.0-1.2); Bilirubin,Total 0.6 mg/dL (0.3-1.0); Blood Urea Nitrogen 15 mg/dL (8-23); Carbon Dioxide 22 mEq/L (23-29); Chloride 104 mEq/L (98-107); Globulin 2.7 g/dL (2.4-3.5); Glucose 104 mg/dL (70-105); Osmolality,Calculated 279 (280-300); Potassium 4.2 mEq/L (3.5-5.1); Sodium 134 mEq/L (136-145); Total Protein 6.5 g/dL (6.4-8.9); eGFR For African Americans > 60 (> 60); eGFR For Non-African Americans > 60 (> 60)
--- NOTE | 2018-01-03 17:45 | Emergency Department Note ---
Disposition Clinical Impression: Elevated TSH Altered mental status Qualifiers: Altered mental status type: somnolence Qualified Code(s): R40.0 - Somnolence Anemia Qualifiers: Anemia type: unspecified type Qualified Code(s): D64.9 - Anemia, unspecified Disposition: Admitted As Inpatient Condition: Good Altered Mental Status HPI - General Chief Complaint: ED Altered Mental Status Stated Complaint: AMS Time Seen by Provider: 01/03/18 15:36 Source: patient, EMS Mode of arrival: EMS Limitations: altered mental status Nursing Notes Reviewed: Yes Vital Signs Reviewed: Yes - History of Present Illness HPI Narrative: 87-year-old female presents to the ER via EMS due to altered mental status. No family was present at time of arrival. The patient is a poor historian and is not speaking to me at this time. Report is that she was just evaluated at another facility for altered mental status and discharged home. Family is on the way in. At the time of my arrival she is noncompliant with an exam and tries to close her eyes to prevent me from looking into them. MD complaint: altered mental status Onset (ago): week(s) - Related Data Home Medications Medication Instructions Recorded Confirmed Atorvastatin [Lipitor] 20 mg PO HS 01/23/17 01/03/18 Labetalol HCl 200 mg PO BID 01/23/17 01/03/18 Carbidopa/Levodopa 10/100 [Sinemet 1 tab PO TID 05/09/17 01/03/18 10/100] Buspirone HCl [Buspar] 20 mg PO BID 01/03/18 01/03/18 Nitrofurantoin (BID) [Macrobid] 100 mg PO BID 01/03/18 01/03/18 Quetiapine Fumarate [Seroquel] 25 mg PO HS 01/03/18 01/03/18 Ranitidine HCl [Heartburn Relief] 150 mg PO DAILY 01/03/18 01/03/18 Previous Rx's Medication Instructions Recorded Aspirin Enteric Coated [Aspirin EC] 81 mg PO DAILY tablet. 01/26/17 Lisinopril [Zestril] 20 mg PO DAILY #30 tablet 05/11/17 levETIRAcetam [Keppra] 250 mg PO Q12HR #60 tablet 05/11/17 Allergies Allergy/AdvReac Type Severity Reaction Status Date / Time ciprofloxacin [From Cipro] Allergy Unknown See Verified 01/23/17 06:36 Comments Penicillins Allergy Unknown See Verified 01/23/17 06:37 Comments All systems ED: reviewed and negative except as stated. Constitutional: Denies: fever Cardiovascular: Reports: chest pain Respiratory: Reports: dyspnea Gastrointestinal: Reports: abdominal pain. Denies: nausea, vomiting Past Medical History - Past Medical History Attestation: Yes The following information was validated with the patient. Source: old records reviewed, obtained from family Medical history: Reports: non-contributory, dementia, hyperlipidemia, other Surgical history: Reports: no surgical history Psychiatric history: Reports: anxiety, depression - Social History Smoking Status: Never smoker Smokeless Tobacco Status: No Alcohol use: Reports: none Drug use: Reports: none Physical Exam - General Limitations: altered mental status General appearance: alert, in no apparent distress - Head Head exam: atraumatic, normocephalic - Eye Eye exam: Present: normal appearance, PERRL - ENT ENT exam: normal exam - Neck Neck exam: Present: normal inspection, full ROM - Chest Chest inspection: Present: normal inspection, symmetric chest wall rise - Respiratory Respiratory exam: Present: other (Diminished breath sounds bilaterally) - Cardiovascular Cardiovascular exam: Present: regular rate, normal rhythm, normal heart sounds - Abdominal Exam Abdominal exam: Present: soft, Non-Tender. Absent: tenderness - Extremities Exam Extremities exam: Present: normal inspection, full ROM - Expanded Upper Extremity Exam Shoulder exam: Present: normal inspection, full ROM Arm exam: Present: normal inspection, full ROM Elbow exam: Present: normal inspection, full ROM Forearm/Wrist exam: Present: normal inspection, full ROM Hand exam: Present: normal inspection, full ROM - Expanded Lower Extremity Exam Hip/Pelvis exam: Present: normal inspection, full ROM Upper leg exam: Present: normal inspection, full ROM Knee exam: Present: normal inspection, full ROM Lower leg exam: Present: normal inspection, full ROM Ankle exam: Present: normal inspection, full ROM Foot/toe exam: Present: normal inspection, full ROM - Skin Skin exam: Present: warm, dry Course Course Narrative: Patient seen and examined. Family is at bedside now. They state she has not been doing well since the middle of November. She was seen yesterday and discharged home. They state she was recently stopped one of her medications. She is more alert with son in the room and states that she feels short of breath and having left-sided neck pain which the son states she always says she has. They would like her to go back to nursing facility. We will have social media editor evaluate the patient in the emergency department. The patient does open her eyes and voices that she feels short of breath and is having neck pain. She is much more responsive with family here. - Reevaluation(s) Reevaluation #1: Unable to place the patient at this time. We will admit to the hospitalist for altered mental status and for placement to a nursing facility. Vital Signs Temperature 98.3 F 01/03/18 15:33 Pulse Rate 90 01/03/18 15:33 Respiratory Rate 16 01/03/18 15:33 Blood Pressure 194/97 01/03/18 15:33 O2 Sat by Pulse Oximetry 100 01/03/18 15:33 Temperature 99.5 F 01/04/18 07:36 Pulse Rate 92 01/04/18 07:36 Respiratory Rate 20 01/04/18 07:36 Blood Pressure 143/83 01/04/18 07:36 O2 Sat by Pulse Oximetry 98 01/04/18 07:36 Oxygen Delivery Oxygen Delivery Room Air Altered Mental Status - MDM Narrative Medical decision making narrative: 87-year-old female presents to the ER due to altered mental status. She has not been acting at baseline since mid November as per family. They have been trying to take care of her at home but believe they are unable to now. She initially was uncooperative with exam but did start to interact once her family arrived. Likely she has a progression of her dementia as well as a behavioral component. Her CT of her head shows no acute findings. EKG with left bundle branch block unchanged. Chest x-ray unremarkable. Labs and urinalysis are viewed without acute derangements. Unable to place a fpc from here. She is admitted to the hospitalist for placement. - Lab Data Lab results reviewed: Yes I reviewed the patient's lab results. Result diagrams: 01/04/18 04:35 01/04/18 04:35 Lab Results 01/03/18 01/03/18 01/03/18 Range/Units 16:42 16:42 16:42 WBC 6.6 (4.3-11.1) K/mcL RBC 3.86 (3.82-4.97) M/mcL Hgb 11.1 L (11.5-15.4) g/dL Hct 34.2 L (35.3-44.9) % MCV 88.6 (83.0-100.0) fL MCH 28.8 (28.0-33.3) pg MCHC 32.5 (31.6-35.5) g/dL RDW 13.3 (11.5-14.5) % Plt Count 277 (140-400) K/mcL MPV 10.1 (9.4-12.4) fL Immature Gran % 0.2 (0-4) % Seg Neutrophils % 53.8 % Lymphocytes % 29.1 % Monocytes % 9.8 % Eosinophils % 6.2 % Basophils % 0.9 % Neutrophils # 3.6 (1.6-8.9) K/mcL Lymphocytes # 1.9 (0.6-4.6) K/mcL Monocytes # 0.7 (0.0-1.3) K/mcL Eosinophils # 0.4 (0.0-0.6) K/mcL Basophils # 0.1 (0.0-0.2) K/mcL Sodium 134 L (136-145) mEq/L Potassium 4.2 (3.5-5.1) mEq/L Chloride 104 (98-107) mEq/L Carbon Dioxide 22 L (23-29) mEq/L BUN 15 (8-23) mg/dL Creatinine 0.81 (0.60-1.20) mg/dL Est GFR ( Amer) > 60 (> 60) Est GFR (Non-Af Amer) > 60 (> 60) BUN/Creatinine Ratio 19 (6-26) Glucose 104 (70-105) mg/dL Calculated Osmolality 279 L (280-300) Calcium 9.0 (8.6-10.3) mg/dL Total Bilirubin 0.6 (0.3-1.0) mg/dL Direct Bilirubin 0.0 (0.0-0.2) mg/dL Indirect Bilirubin 0.6 (0.0-1.2) mg/dL AST 16 (13-39) Units/L ALT 11 (7-52) Units/L Alkaline Phosphatase 78 (34-104) Units/L Ammonia 26 (16-53) mcmol/L Troponin I (< 0.04) ng/mL Serum Total Protein 6.5 (6.4-8.9) g/dL Albumin 3.8 (3.5-5.7) g/dL Globulin 2.7 (2.4-3.5) g/dL Albumin/Globulin Ratio 1.4 (1.1-2.2) TSH 5.960 H (0.340-5.600) mcIU/mL Urine Color (Yellow) Urine Clarity (Clear) Urine pH (5.0-8.0) pH Units Ur Specific [place] (1.010-1.025) Urine Protein (Neg-Trace) mg/dL Urine Glucose (UA) (Normal) mg/dL Urine Ketones (Negative) mg/dL Urine Blood (Negative) Urine Nitrite (Negative) Urine Bilirubin (Negative) Urine Urobilinogen (Normal) mg/dL Ur Leukocyte Esterase (Negative) Ur Culture Indicated? (NO) Urine Opiates Screen (Rftfbb=545) ng/mL Ur Barbiturates Screen (Tviuyg=161) ng/mL Ur Phencyclidine Scrn (Cutoff=25) ng/mL Ur Amphetamines Screen (Agdvrg=8220) ng/mL U Benzodiazepines Scrn (Dxzrtl=103) ng/mL Urine Cocaine Screen (Cutoff= 300) ng/mL U Marijuana (THC) Screen (Cutoff = 50) ng/mL 01/03/18 01/03/18 01/03/18 Range/Units 16:42 18:20 18:20 WBC (4.3-11.1) K/mcL RBC (3.82-4.97) M/mcL Hgb (11.5-15.4) g/dL Hct (35.3-44.9) % MCV (83.0-100.0) fL MCH (28.0-33.3) pg MCHC (31.6-35.5) g/dL RDW (11.5-14.5) % Plt Count (140-400) K/mcL MPV (9.4-12.4) fL Immature Gran % (0-4) % Seg Neutrophils % % Lymphocytes % % Monocytes % % Eosinophils % % Basophils % % Neutrophils # (1.6-8.9) K/mcL Lymphocytes # (0.6-4.6) K/mcL Monocytes # (0.0-1.3) K/mcL Eosinophils # (0.0-0.6) K/mcL Basophils # (0.0-0.2) K/mcL Sodium (136-145) mEq/L Potassium (3.5-5.1) mEq/L Chloride (98-107) mEq/L Carbon Dioxide (23-29) mEq/L BUN (8-23) mg/dL Creatinine (0.60-1.20) mg/dL Est GFR ( Amer) (> 60) Est GFR (Non-Af Amer) (> 60) BUN/Creatinine Ratio (6-26) Glucose (70-105) mg/dL Calculated Osmolality (280-300) Calcium (8.6-10.3) mg/dL Total Bilirubin (0.3-1.0) mg/dL Direct Bilirubin (0.0-0.2) mg/dL Indirect Bilirubin (0.0-1.2) mg/dL AST (13-39) Units/L ALT (7-52) Units/L Alkaline Phosphatase (34-104) Units/L Ammonia (16-53) mcmol/L Troponin I 0.03 (< 0.04) ng/mL Serum Total Protein (6.4-8.9) g/dL Albumin (3.5-5.7) g/dL Globulin (2.4-3.5) g/dL Albumin/Globulin Ratio (1.1-2.2) TSH (0.340-5.600) mcIU/mL Urine Color Yellow (Yellow) Urine Clarity Clear (Clear) Urine pH 8.5 H (5.0-8.0) pH Units Ur Specific [place] 1.012 (1.010-1.025) Urine Protein Negative (Neg-Trace) mg/dL Urine Glucose (UA) Normal (Normal) mg/dL Urine Ketones Trace H (Negative) mg/dL Urine Blood Negative (Negative) Urine Nitrite Negative (Negative) Urine Bilirubin Negative (Negative) Urine Urobilinogen Normal (Normal) mg/dL Ur Leukocyte Esterase Negative (Negative) Ur Culture Indicated? NO (NO) Urine Opiates Screen Negative (Hzbcpm=696) ng/mL Ur Barbiturates Screen Negative (Xiagvl=212) ng/mL Ur Phencyclidine Scrn Negative (Cutoff=25) ng/mL Ur Amphetamines Screen Negative (Ensavv=1932) ng/mL U Benzodiazepines Scrn Negative (Ugastd=323) ng/mL Urine Cocaine Screen Negative (Cutoff= 300) ng/mL U Marijuana (THC) Screen Negative (Cutoff = 50) ng/mL - Radiology Data Radiology results reviewed: Yes I reviewed the patient's radiology results. - EKG Data EKG attestation: Yes I reviewed and interpreted this EKG. EKG results narrative: EKG demonstrates sinus rhythm with left bundle branch block with a rate of 97 bpm. Left axis deviation. Poor R-wave progression. Prolonged QRS duration of 133. No gross ST elevations or depressions. No acute ischemic findings. No significant changes from previous EKG dated 05/08/17. TPA Checklist - LKW: 3-4.5 hrs Add. Warnings/Precautions Patient/family understanding: The patient/family members have been counseled and understood the risk, benefit , and alternatives of treatment. S.B.A.R. - S.B.A.Navin Situation: Demographics, MOA Background: Presenting Complaint, Relevant PMH, Meds, & Allergies Assessment: Course and respsone to treatment, Exam Concerns, Patient/Family Expectation, Pertinant Lab Results Recommendation: Barrier(s) to disposition, Recommendation based on pending studies, treatments, or consults S.B.A.RFloyd Report Given to: Dr. Jena Salamanca Repor Time: 18:48 Attestation Statement - Attestation Attestation: I examined this patient and my medical decision-making was reviewed with the Resident Physician, Dr. Escamilla. I agree with the documented findings, disposition and treatment plan as described except to the extent set forth below. Patient is an 87-year-old white female who presents to the emergency department today with for altered mental status sent from home. Reportedly patient resides with her son who took her to another emergency department for evaluation 24 hours ago and patient was discharged home. No family of present initially but patient arrives and she is refusing to speak squeezing her eyes shut when we ask her to open her eyes will not open her mouth or comply with exam. Patient appears in no acute distress. Unable to obtain further history from the patient directly. I agree with patient's physical exam findings as documented. Patient with mild elevation in her blood pressure on arrival. Patient's son arrives and states that she has been having altered mental status and gradual decline in function for the past month. Patient's lab evaluation is unremarkable with the exception of an elevated TSH. Chest x-ray is clear head CT is unremarkable. Patient requires social media editor assistance at home and we are unable to get this today, so patient will be admitted for further medical management as well as social media editor consultation. Case was discussed with the hospitalist who accepted patient for admission.
[2018-01-03 18:28] LABS: Bilirubin,Urine Negative (Negative); Blood,Urine Negative (Negative); Clarity,Urine Clear (Clear); Color,Urine Yellow (Yellow); Glucose,Urine (UA) Normal (Normal); Ketones,Urine Trace mg/dL (Negative); Leukocyte Esterase,Urine Negative (Negative); Nitrite,Urine Negative (Negative); PH,Urine 8.5 pH Units (5.0-8.0); Protein,Urine Negative (Neg-Trace); Specific Gravity,Urine 1.012 (1.010-1.025); Urobilinogen,Urine Normal (Normal)
[2018-01-03 18:37] LABS: Amphetamine Screen,Urine Negative ng/mL (Cutoff=1000); Barbiturate Screen,Urine Negative ng/mL (Cutoff=200); Benzodiazepines Screen,Urine Negative ng/mL (Cutoff=200); Cannabinoid Screen,Urine Negative ng/mL (Cutoff = 50); Cocaine Screen,Urine Negative ng/mL (Cutoff= 300); Opiate Screen,Urine Negative ng/mL (Cutoff=300); Phencyclidine Screen,Urine Negative ng/mL (Cutoff=25)
[2018-01-03] MEDS ORDERED: Naloxone 0.4 MG/ML INJ IVP PRN (22:27)
--- NOTE | 2018-01-03 22:36 | Internal Med History&Physical ---
Date of Encounter: 01/03/18 Time of Encounter: 22:31 Assessment and Plan (1) Altered mental status Current visit: Yes Status: Acute uncertain etiology. Appears chronic in presentation CXR, UA clean - does not appear to be infectious TSH elevated, check FT4 to r/o severe hypothyroid causing symptoms consult neuro - could be be epilepsy related ??? Restart keppra IV Other differential include some sort of -lepsy disorder ?? NPO, IVF for now Qualifiers: Altered mental status type: somnolence Qualified Code(s): R40.0 - Somnolence (2) Elevated TSH Current visit: Yes Status: Acute check FT4 (3) Epilepsy Current visit: No Status: Acute restart keppra. monitor closely Qualifiers: Epilepsy type: unspecified Intractability: not intractable Status epilepticus: without status epilepticus Qualified Code(s): G40.909 - Epilepsy , unspecified, not intractable, without status epilepticus (4) Hypertension Current visit: No Status: Chronic continue med when able to take PO meanwhile, Iv hydralazine prn for now Qualifiers: Hypertension type: essential hypertension Qualified Code(s): I10 - Essential (primary) hypertension (5) Parkinsons disease Current visit: No Status: Chronic Internal Medicine - H&P: HPI Chief complaint: AMS History of present illness: Ms. Reno is a 87 year old female with hx of parkinson disease , on AED that was recently discontinued who presents with recurrent encephalopathy. Collateral hx reports that she had 1 week hx of AMS and had been eval at [facility] from [facility] and was discharged with unremarkable findings. She got up this a.m and looked normal. Howeer, at around 1130-12 noon, she felt weak, associated with epigastric discomfort - family felt that this could be hiatal hernia based on their perception. Also had frontal headache described as cracking/popping. This was progressive to AMS, can't feed, and became real "sleepy". Her PCP Dr Cr has been adjusting her outpatient meds and PO opiates was discontinued. Also her keppra for which she has been taking for at least over 1 year was discontinued . On review, family reports of similar episodes up to 10 x in the last few years w/o much of an etiology At baseline, she lives with , uses a quad cane and is independent of b- adls XR/XR chest 1V portable IMPRESSION: No acute process in the chest. Stable appearance of large hiatal hernia. Stable exam. Past Med Surg Social Fam HX - Past Medical History Medical history: non-contributory, dementia, hyperlipidemia, other Psychiatric history: anxiety, depression - Past Surgical History Surgical History: no surgical history - Social History Smoking Status: Never smoker Smokeless Tobacco Status: No Alcohol use: none Drug use: none - Family History Mother Adopted: No Living Status: Hx Family Cancer: Yes (unsure of type of cancer) Internal Medicine - H&P: Meds Atorvastatin [Lipitor] 20 mg PO HS 01/23/17 [History] Labetalol HCl 200 mg PO BID 01/23/17 [History] Aspirin Enteric Coated [Aspirin EC] 81 mg PO DAILY tablet. 01/26/17 [Rx] Carbidopa/Levodopa 10/100 [Sinemet 10/100] 1 tab PO TID 05/09/17 [History] Lisinopril [Zestril] 20 mg PO DAILY #30 tablet 05/11/17 [Rx] levETIRAcetam [Keppra] 250 mg PO Q12HR #60 tablet 05/11/17 [Rx] Buspirone HCl [Buspar] 20 mg PO BID 01/03/18 [History] Nitrofurantoin (BID) [Macrobid] 100 mg PO BID 01/03/18 [History] Quetiapine Fumarate [Seroquel] 25 mg PO HS 01/03/18 [History] Ranitidine HCl [Heartburn Relief] 150 mg PO DAILY 01/03/18 [History] 3 Allergy/AdvReac Type Severity Reaction Status Date / Time ciprofloxacin [From Cipro] Allergy Unknown See Verified 01/23/17 06:36 Comments Penicillins Allergy Unknown See Verified 01/23/17 06:37 Comments All Systems PM: A 10-system review of systems was performed and is negative for pertinent findings except as documented above in the HPI. Review of systems: ROS 14 point review of systems reviewed as best as possible given presentation. Pertinent positive or negative as per HPI or otherwise reviewed as negative - Constitutional Vitals: Temp Pulse Resp BP Pulse Ox 98.5 F 76 14 172/78 98 01/03/18 21:39 01/03/18 21:39 01/03/18 21:39 01/03/18 21:39 01/03/18 21:39 Exam: General - Somnolent Psych - No agitation Eyes - Eye lids intact. No scleral icterus Neuro - Somnolent, arousable to palpation, generalized weakness, non-focal, neuro exam limited by mental status Heart - Sinus. RRR. S1 and S2 present. No added HS/murmurs appreciated. No elevated JVD appreciated. Lung - Adequate air entry b/l, No crackles/wheezes appreciated GI - Soft, non-tender. No hepatosplenomegaly/ascites. BS+ - No CVA/suprapubic tenderness or palpable bladder distension Skin - Intact. No rash/petechiae/ecchymosis. Warm extremities. Trace b/l LE edema Internal Med - H&P Results - Labs CBC & Chem 7: 01/03/18 16:42 01/03/18 16:42
[2018-01-03] MEDS: Ringers Solution, Lactated 1,000 ML IVC SCH (23:22)
[2018-01-04] MEDS: levETIRAcetam 250 MG in 0.9 % Sodium Chloride 100 ML IVPB SCH ×3 (00:42→21:02)
[2018-01-04 04:54] LABS: Basophils # 0.1 K/mcL (0.0-0.2); Basophils % 0.5 %; Eosinophils # 0.1 K/mcL (0.0-0.6); Eosinophils % 1.2 %; Hematocrit 31.9 % (35.3-44.9); Hemoglobin 10.9 g/dL (11.5-15.4); Immature Granulocytes % 0.2 % (0-4); Lymphocytes # 1.7 K/mcL (0.6-4.6); Lymphocytes % 16.5 %; Mean Corpuscular HGB Conc 34.2 g/dL (31.6-35.5); Mean Corpuscular Hemoglobin 29.6 pg (28.0-33.3); Mean Corpuscular Volume 86.7 fL (83.0-100.0); Mean Platelet Volume 10.1 fL (9.4-12.4); Platelet Count 288 K/mcL (140-400); Red Blood Count 3.68 M/mcL (3.82-4.97); Red Cell Distribution Width 13.4 % (11.5-14.5); Segmented Neutrophils % 71.6 %
[2018-01-04 04:56] LABS: Neutrophils # 7.5 K/mcL (1.6-8.9)
[2018-01-04 05:18] LABS: Chloride 107 mEq/L (98-107); Sodium 134 mEq/L (136-145)
[2018-01-04 05:39] LABS: Alanine Aminotransferase 13 Units/L (7-52); Albumin 3.4 g/dL (3.5-5.7); Albumin/Globulin Ratio 1.4 (1.1-2.2); Alkaline Phosphatase 72 Units/L (34-104); Aspartate Amino Transferase 13 Units/L (13-39); BUN/Creatinine Ratio 19 (6-26); Bilirubin,Total 0.6 mg/dL (0.3-1.0); Blood Urea Nitrogen 13 mg/dL (8-23); Calcium 8.4 mg/dL (8.6-10.3); Carbon Dioxide 18 mEq/L (23-29); Globulin 2.4 g/dL (2.4-3.5); Glucose 116 mg/dL (70-105); Osmolality,Calculated 279 (280-300); Total Protein 5.8 g/dL (6.4-8.9); eGFR For African Americans > 60 (> 60); eGFR For Non-African Americans > 60 (> 60)
[2018-01-04] MEDS ORDERED: *HR* Enoxaparin 30 MG/0.3 ML SYRINGE SQ SCH (06:00)
--- NOTE | 2018-01-04 06:39 | Electrocardiograph Report ---
[address] [place], [place] [address] Test Date: 2018-01-03 Pat Name: Elba Reno Department: 104 Room: 3B Gender: Rn Production: : 1930 Requested By: Alivn Escamilla Order Number: [id number] Reading MD: Ronan Manley MD Measurements Intervals [place] Rate: 97 P: 65 NE: 195 QRS: -49 QRSD: 133 T: 112 QT: 383 QTc: 437 Interpretive Statements SINUS RHYTHM MARKED LEFT AXIS DEVIATION Poor R wave progression LEFT BUNDLE BRANCH BLOCK Electronically Signed On 01-04-2018 6:38:17 EST by Ronan Manley MD
--- NOTE | 2018-01-04 09:25 | Neurology - Consult Note ---
<Francisco Perry - Last Filed: 01/04/18 11:18> Date of Encounter: 01/04/18 Time of Encounter: 09:19 Assessment and Plan (1) Encephalopathy Status: Acute Appears to be chronic in nature. Per the record the patient has waxing and waning changes in her mental status but this is been going on for years. Further information was difficult to obtain as attempts to reach the family were unsuccessful. Patient has had seizure activity in the past however this was felt to be related to benzodiazepine withdrawal. No seizure activity noted at this time and no documentation of any recent seizure activity. Patient was last seen by a neurologist in February 2017 who recommended that she discontinue Keppra at that time but apparently she has remained on this and has stopped recently. Can continue Keppra for now. We will obtain EEG. CT of the head was unremarkable. (2) Parkinsons disease Status: Chronic Continue Sinemet History of Present Illness Chief complaint: AMS HPI: Ms. Reno is a 87 year old female with history of Parkinson's disease, hypertension who presents with altered mental status. Patient is confused and minimally responsive although she does wake up to verbal stimuli. She is unable to provide a history. Attempts to contact the family were unsuccessful. The history is obtained from the medical record. Per the ER documentation the patient was recently evaluated at [facility] and discharged home. According to the record the family stated that she had not been doing well since the middle of November. The family requested that she be discharged to a nursing facility but that was unable to accomplished from the emergency department. Apparently the patient was much more responsive with family present. Per the H&P apparently the patient has been evaluated at [facility] more than 10 times for similar issues in the last few years without an etiology being identified. Past Med Surg Social Fam HX - Past Medical History Medical history: non-contributory, dementia, hyperlipidemia, other Psychiatric history: anxiety, depression - Past Surgical History Surgical History: no surgical history - Social History Smoking Status: Never smoker Smokeless Tobacco Status: No Alcohol use: none Drug use: none - Family History Mother Adopted: No Living Status: Hx Family Cancer: Yes (unsure of type of cancer) Medications and Allergies Atorvastatin [Lipitor] 20 mg PO HS 01/23/17 [History] Labetalol HCl 200 mg PO BID 01/23/17 [History] Aspirin Enteric Coated [Aspirin EC] 81 mg PO DAILY tablet. 01/26/17 [Rx] Carbidopa/Levodopa 10/ [Sinemet 10] 1 tab PO TID 05/09/17 [History] Lisinopril [Zestril] 20 mg PO DAILY #30 tablet 05/11/17 [Rx] levETIRAcetam [Keppra] 250 mg PO Q12HR #60 tablet 05/11/17 [Rx] Buspirone HCl [Buspar] 20 mg PO BID 01/03/18 [History] Quetiapine Fumarate [Seroquel] 25 mg PO HS 01/03/18 [History] Ranitidine HCl [Heartburn Relief] 150 mg PO DAILY 01/03/18 [History] 3 Allergy/AdvReac Type Severity Reaction Status Date / Time ciprofloxacin [From Cipro] Allergy Unknown See Verified 01/23/17 06:36 Comments Penicillins Allergy Unknown See Verified 01/23/17 06:37 Comments ROS unobtainable: due to mental status All Systems: A 10-system review of systems was performed and is negative for pertinent findings except as documented above in the HPI. Physical Examination - Vital Signs Vital Signs: Initial Vital Signs Temp Pulse Resp BP Pulse Ox 98.3 F 90 16 194/97 100 01/03/18 15:33 01/03/18 15:33 01/03/18 15:33 01/03/18 15:33 01/03/18 15:33 - Constitutional General appearance: chronically ill - Neurologic Sensorimotor examination: other (Unable to assess due to the patient's mental status) Detailed motor examination: other (Patient moves all 4 extremities spontaneously but further assessment was unable to be obtained due to the patient's mental status) Detailed sensory examination: other (Unable to assess) Reflex and gait examination: other (Unable to assess) Mental Status Examination: awake, cognitive impairment, not reliable historian Mental Status Examination: Patient would open her eyes to verbal stimuli but would not follow simple commands and would not respond verbally. Results - Laboratory Findings CBC and BMP: 01/04/18 04:35 01/04/18 04:35 Abnormal lab findings: Abnormal lab results RBC 3.68 M/mcL (3.82-4.97) L 01/04/18 04:35 Hgb 10.9 g/dL (11.5-15.4) L 01/04/18 04:35 Hct 31.9 % (35.3-44.9) L 01/04/18 04:35 Sodium 134 mEq/L (136-145) L 01/04/18 04:35 Carbon Dioxide 18 mEq/L (23-29) L 01/04/18 04:35 Glucose 116 mg/dL (70-105) H 01/04/18 04:35 Calculated Osmolality 279 (280-300) L 01/04/18 04:35 Calcium 8.4 mg/dL (8.6-10.3) L 01/04/18 04:35 Serum Total Protein 5.8 g/dL (6.4-8.9) L 01/04/18 04:35 Albumin 3.4 g/dL (3.5-5.7) L 01/04/18 04:35 TSH 5.960 mcIU/mL (0.340-5.600) H 01/03/18 16:42 Urine pH 8.5 pH Units (5.0-8.0) H 01/03/18 18:20 Urine Ketones Trace mg/dL (Negative) H 01/03/18 18:20 Consult Discharge Plan - Plan Referrals: Brock Cr DO [Primary Care Provider] - (in 1-2 weeks) Сергей Finnegan MD [Partnered Physician] - (in 1-2 weeks) <Dipesh Soto I - Last Filed: 01/07/18 10:26> Date of Encounter: 01/04/18 History of Present Illness HPI: Ms. Reno is a 87 year old female All Systems: A 10-system review of systems was performed and is negative for pertinent findings except as documented above in the HPI. Physical Examination - Vital Signs Vital Signs: Initial Vital Signs Temp Pulse Resp BP Pulse Ox 98.3 F 90 16 194/97 100 01/03/18 15:33 01/03/18 15:33 01/03/18 15:33 01/03/18 15:33 01/03/18 15:33 Results - Laboratory Findings CBC and BMP: 01/04/18 04:35 01/04/18 04:35 Abnormal lab findings: Abnormal lab results RBC 3.68 M/mcL (3.82-4.97) L 02/09/18 04:35 Hgb 10.9 g/dL (11.5-15.4) L 01/04/18 04:35 Hct 31.9 % (35.3-44.9) L 01/04/18 04:35 Sodium 134 mEq/L (136-145) L 01/04/18 04:35 Carbon Dioxide 18 mEq/L (23-29) L 01/04/18 04:35 Glucose 116 mg/dL (70-105) H 01/04/18 04:35 POC Glucose 94 (58-89) H 01/05/18 06:45 Calculated Osmolality 279 (280-300) L 01/04/18 04:35 Calcium 8.4 mg/dL (8.6-10.3) L 01/04/18 04:35 Serum Total Protein 5.8 g/dL (6.4-8.9) L 01/04/18 04:35 Albumin 3.4 g/dL (3.5-5.7) L 01/04/18 04:35 TSH 5.960 mcIU/mL (0.340-5.600) H 01/03/18 16:42 Urine pH 8.5 pH Units (5.0-8.0) H 01/03/18 18:20 Urine Ketones Trace mg/dL (Negative) H 01/03/18 18:20 - Attending Attestation I examined this patient and my medical decision-making was reviewed with the Resident Physician, I agree with the documented findings, disposition and treatment plan as described except to the extent set forth below. Dipesh Soto MD
[2018-01-04] MEDS: Aspirin Enteric Coated 81 MG Tablet PO SCH (10:00)
[2018-01-04] MEDS: Famotidine 20 MG TABLET PO SCH (10:01)
[2018-01-04] MEDS: Ringers Solution, Lactated 1,000 ML IVC SCH (10:02)
[2018-01-04] MEDS: *HR* Enoxaparin 30 MG/0.3 ML SYRINGE SQ SCH (10:02)
--- NOTE | 2018-01-04 10:54 | EEG/EMG/Oth Biometrics Report ---
EEG Procedure Report Date of procedure: 01/04/18 EEG Procedure: Routine EEG Procedure Note: Routine 18-channel digital EEG was obtained to rule out any seizure activity or focal abnormalities. FINDINGS: Background rhythm during awake stage shows well-organized, well- developed, average voltage 8 to 9 hertz alpha activity in the posterior regions. It blocks with eye opening and it is bilaterally synchronous and symmetrical. No [id number] discharges or any lateralizing abnormalities are seen. Photic stimulation did not produce any abnormalities. Hyperventilation was not performed. No abnormalities were found during the procedure. Intermittent EMG artifacts were seen. Stage II sleep was not achieved. IMPRESSION: limited study due to significant electrode and movement artifacts, no abvious epileptiform discharges or any other paroxysmal activities or focal abnormalities seen. Clinical correlation is recommended.
--- NOTE | 2018-01-04 15:32 | Internal Med Progress Note ---
Date of Encounter: 01/04/18 Time of Encounter: 08:50 - Assessment and plan (1) Altered mental status Current Visit: Yes Status: Acute Assessment and plan: Waxing and waning delirium. Likely related to Parkinson's disease and dementia. Neurology consultation. We will await recommendations. In the meantime, monitor patient's neuro function. PTOT consult. Fall precautions. Qualifiers: Altered mental status type: delirium Qualified Code(s): R41.0 - Disorientation, unspecified (2) Elevated TSH Current Visit: Yes Status: Acute Assessment and plan: Patient has normal free T4. No indication for levothyroxine therapy at this time. (3) Epilepsy Current Visit: Yes Status: Chronic Assessment and plan: Continue Keppra Qualifiers: Epilepsy type: other Intractability: not intractable Status epilepticus: without status epilepticus Qualified Code(s): G40.802 - Other epilepsy, not intractable, without status epilepticus (4) Hypertension Current Visit: Yes Status: Chronic Assessment and plan: Well-controlled Qualifiers: Hypertension type: essential hypertension Qualified Code(s): I10 - Essential (primary) hypertension (5) Parkinsons disease Current Visit: Yes Status: Chronic Assessment and plan: Continue Sinemet. Patient evaluated by physical therapy and has been recommended placement to skilled rehabilitation. We will consult family welfare social work professor to make arrangements for this. - Subjective Interval history: Patient is lying in bed. Not responding to questions. Appears confused and has trouble communicating at this time. - Constitutional Vitals: Temp Pulse Resp BP Pulse Ox 97.8 F 100 16 99/62 97 01/04/18 15:15 01/04/18 15:15 01/04/18 15:15 01/04/18 15:15 01/04/18 15:15 General appearance: Present: A&O X 0, cooperative. Absent: answers questions appropriately - Respiratory Respiratory exam: Present: CTAB. Absent: accessory muscle use, rales, rhonchi, wheezes - Cardiovascular Cardiovascular exam: Present: RRR, +S1, +S2. Absent: diastolic murmur, gallop, rubs, systolic murmur - GI/Abdominal GI/Abdominal exam: Present: normal bowel sounds, soft, no peritoneal signs. Absent: distended, tenderness - Extremities Exam Extremities exam: Present: warm, radial pulses palpable and symmetrical. Absent : calf tenderness, cyanotic, pedal edema Internal Medicine: Result - Labs CBC & Chem 7: 01/04/18 04:35 01/04/18 04:35 Labs: Short CBC 01/04/18 Range/Units 04:35 WBC 10.4 D (4.3-11.1) K/mcL Hgb 10.9 L (11.5-15.4) g/dL Hct 31.9 L (35.3-44.9) % Plt Count 288 (140-400) K/mcL Neutrophils # 7.5 (1.6-8.9) K/mcL BMP 01/04/18 04:35 Sodium 134 L Potassium 4.0 Chloride 107 Carbon Dioxide 18 L BUN 13 Creatinine 0.69 Glucose 116 H Calcium 8.4 L Liver Function 01/04/18 Range/Units 04:35 Total Bilirubin 0.6 (0.3-1.0) mg/dL AST 13 (13-39) Units/L ALT 13 (7-52) Units/L Alkaline Phosphatase 72 (34-104) Units/L Albumin 3.4 L (3.5-5.7) g/dL Consult Discharge Plan - Plan Referrals: Brock Cr DO [Primary Care Provider] -
[2018-01-05 06:49] VITALS: BP 118/56
--- NOTE | 2018-01-05 08:30 | Discharge Summary ---
Date of Encounter: 01/05/18 Time of Encounter: 08:28 - Discharge Diagnosis (1) Altered mental status Priority: Primary Status: Acute Qualifiers: Altered mental status type: delirium Qualified Code(s): R41.0 - Disorientation, unspecified (2) Elevated TSH Priority: Secondary Status: Acute (3) Epilepsy Priority: Secondary Status: Chronic Qualifiers: Epilepsy type: other Intractability: not intractable Status epilepticus: without status epilepticus Qualified Code(s): G40.802 - Other epilepsy, not intractable, without status epilepticus (4) Hypertension Priority: Secondary Status: Chronic Qualifiers: Hypertension type: essential hypertension Qualified Code(s): I10 - Essential (primary) hypertension (5) Parkinsons disease Priority: Secondary Status: Chronic - Discharge Medications Home Medications: Atorvastatin [Lipitor] 20 mg PO HS 01/23/17 [History] Labetalol HCl 200 mg PO BID 01/23/17 [History] Aspirin Enteric Coated [Aspirin EC] 81 mg PO DAILY tablet. 01/26/17 [Rx] Carbidopa/Levodopa 10/100 [Sinemet 10/100] 1 tab PO TID 05/09/17 [History] Lisinopril [Zestril] 20 mg PO DAILY #30 tablet 05/11/17 [Rx] levETIRAcetam [Keppra] 250 mg PO Q12HR #60 tablet 05/11/17 [Rx] Buspirone HCl [Buspar] 20 mg PO BID 01/03/18 [History] Quetiapine Fumarate [Seroquel] 25 mg PO HS 01/03/18 [History] Ranitidine HCl [Heartburn Relief] 150 mg PO DAILY 01/03/18 [History] Allergies/Adverse Reactions: 3 Allergy/AdvReac Type Severity Reaction Status Date / Time ciprofloxacin [From Cipro] Allergy Unknown See Verified 01/23/17 06:36 Comments Penicillins Allergy Unknown See Verified 01/23/17 06:37 Comments Date of admission: 01/03/18 19:12 Primary care physician: Brock Cr, Consults: 01/03/18 22:27 Consult to Neurology [CONS] Routine Consulting Provider: Neurology [facility] Reason for Consult: encephalopathy uncertain etiology Call Completed: No 01/04/18 09:59 Consult to Occupational Therapy [CONS] Routine Comment: Evaluate, develop and implement POC Reason for Consult: pt not getting out of bed Consult to Physical Therapy [CONS] Routine Comment: Evaluate, develop and implement POC Reason for Consult: pt is not getting out of bed Consult to Radiographer Cardiac Catheterization [CONS] Routine Reason for SW Consult: family wanting placement 01/04/18 11:26 Consult to Interpret Exam [CONS] Routine Consulting Provider: Dipesh Soto I Consult to Interpret Exam: Interpret EEG Discharging clinician: Tho Lanier Anticipated date of discharge: 01/05/18 - Patient Status Disposition: Transfer SNF Condition: Good Functional capacity at discharge: uses cane/walker Overall status at discharge: patient is progressing back to baseline - Discharge Instructions Follow Up With: Brock Cr DO [Primary Care Provider] - (in 1-2 weeks) Сергей Finnegan MD [Partnered Physician] - (in 1-2 weeks) - Diet and Activity Activity: as per physical therapy, increase activity as tolerated Diet: low fat, low cholesterol, low salt diet Hospital course: Ms. Reno is a 87 year old female patient with history of Parkinson's disease who was hospitalized after presenting with altered mental status. Workup done here included CT scan of the head which did not show any acute intracranial process. Patient was also worked up for pneumonia and urinary tract infection. She did not have these conditions. Her symptoms have been waxing and waning nature and could be related to her dementia. She has followed up with neurology and they were consulted in the care of this patient in the hospital. They recommended doing an EEG which was negative for any acute epileptiform activity. Since symptoms seem to have improved now and she is back to baseline. She is at risk for developing further episodes of delirium and encephalopathy is due to her Parkinson's dementia. She had previously been taken off Keppra and this could also have played a part in her symptoms. She has now been placed back on lower dose of Keppra. She is tolerating this well. She will be discharged to skilled rehabilitation today and [facility] - Time Spent with Patient Total time spent providing and/or coordinating discharge services: Greater than 30 minutes (32 min) - Constitutional Vitals: Temp Pulse Resp BP Pulse Ox 98.3 F 74 18 118/56 98 01/05/18 06:39 01/05/18 06:39 01/05/18 06:39 01/05/18 06:39 01/05/18 06:39 General appearance: Present: A&O X 0, cooperative. Absent: answers questions appropriately - Respiratory Respiratory exam: Present: CTAB. Absent: accessory muscle use, rales, rhonchi, wheezes - Cardiovascular Cardiovascular exam: Present: RRR, +S1, +S2. Absent: diastolic murmur, gallop, rubs, systolic murmur - GI/Abdominal GI/Abdominal exam: Present: normal bowel sounds, soft, no peritoneal signs. Absent: distended, tenderness
--- NOTE | 2018-01-05 08:32 | Physician Discharge Referral ---
ExtendedCare Referral Info Provider in Charge after Transfer: PCP Institutional Level of Care: Skilled - Diagnosis (1) Altered mental status Priority: Primary Status: Acute (2) Elevated TSH Priority: Secondary Status: Acute (3) Epilepsy Priority: Secondary Status: Chronic (4) Hypertension Priority: Secondary Status: Chronic (5) Parkinsons disease Priority: Secondary Status: Chronic Prognosis: Fair Aware of Diagnosis: Family Aware of Prognosis: Family - Transfer Medications Home Medications: Atorvastatin [Lipitor] 20 mg PO HS 01/23/17 [History] Labetalol HCl 200 mg PO BID 01/23/17 [History] Aspirin Enteric Coated [Aspirin EC] 81 mg PO DAILY tablet. 01/26/17 [Rx] Carbidopa/Levodopa 10/ [Sinemet 10] 1 tab PO TID 05/09/17 [History] Lisinopril [Zestril] 20 mg PO DAILY #30 tablet 05/11/17 [Rx] levETIRAcetam [Keppra] 250 mg PO Q12HR #60 tablet 05/11/17 [Rx] Buspirone HCl [Buspar] 20 mg PO BID 01/03/18 [History] Quetiapine Fumarate [Seroquel] 25 mg PO HS 01/03/18 [History] Ranitidine HCl [Heartburn Relief] 150 mg PO DAILY 01/03/18 [History] Allergies/Adverse Reactions: 3 Allergy/AdvReac Type Severity Reaction Status Date / Time ciprofloxacin [From Cipro] Allergy Unknown See Verified 01/23/17 06:36 Comments Penicillins Allergy Unknown See Verified 01/23/17 06:37 Comments - Respiratory Orders Smoking Cessation: Smoking cessation has been advised. For more information, call the [place] Tobacco Quit Line at 4-634-RUYV-NOW. - Ancillary Orders May consult with Dentist, Production Supervisor, [employer] - Advance Directives Code Status: Full Code - Mobility Orders Ambulate (per PT) - Rehabiliation Orders Rehab Potential: Fair Rehab Orders: Evaluation for Physical Therapy, Evaluation for Occupational Therapy - Diet Orders Cardiac CERTIFICATION: I certify that the transfer of the above named patient to an Extended Care Facility is necessary for the continuing treatment of the diagnosis listed. The above information is true and accurate reflection of patient's current condition. Confidential - Redisclosure prohibited without a patient's written consent.
[2018-01-05] MEDS: Aspirin Enteric Coated 81 MG Tablet PO SCH (09:17)
[2018-01-05] MEDS: Famotidine 20 MG TABLET PO SCH (09:17)
[2018-01-05] MEDS: *HR* Enoxaparin 30 MG/0.3 ML SYRINGE SQ SCH (09:17)
[2018-01-05] MEDS: levETIRAcetam 250 MG in 0.9 % Sodium Chloride 100 ML IVPB SCH (09:22)
[2018-01-05] MEDS ORDERED: levETIRAcetam 250 MG TABLET PO SCH (18:00)
== END 2018-01-05 10:53 ==
LOC: 3BNU 15:31 → EMEROO 15:31 → 3BNU 19:27 → SUATTDRO 23:32
PROVIDERS: ADMIT Internal Medicine; ATTEND Internal Medicine

== ENCOUNTER 2019-07-11 02:28 | Observation (INO) ==
[2019-07-11] MEDS ORDERED: Ondansetron 4 MG/2 ML VIAL IVP PRN (04:48)
[2019-07-11] MEDS ORDERED: Naloxone 0.4 MG/ML INJ IVP PRN (04:48)
[2019-07-11] MEDS ORDERED: 0.9 % Sodium Chloride 1,000 ML IVC SCH (05:00)
[2019-07-11 05:31] LABS: Basophils % 0.3 %; Eosinophils % 0.6 %; Hematocrit 35.1 % (35.3-44.9); Immature Granulocytes % 0.2 % (0-4); Lymphocytes # 1.4 K/mcL (0.6-4.6); Lymphocytes % 23.1 %; Mean Corpuscular HGB Conc 34.2 g/dL (31.6-35.5); Mean Corpuscular Hemoglobin 29.6 pg (28.0-33.3); Mean Corpuscular Volume 86.5 fL (83.0-100.0); Mean Platelet Volume 9.8 fL (9.4-12.4); Monocytes # 0.5 K/mcL (0.0-1.3); Monocytes % 8.3 %; Neutrophils # 4.2 K/mcL (1.6-8.9); Platelet Count 230 K/mcL (140-400); Red Blood Count 4.06 M/mcL (3.82-4.97); Red Cell Distribution Width 12.9 % (11.5-14.5); Segmented Neutrophils % 67.5 %; White Blood Count 6.2 K/mcL (4.3-11.1)
[2019-07-11 05:39] LABS: Prothrombin Time 11.3 Seconds (9.4-12.1)
[2019-07-11 05:42] LABS: Activated Partial Thrombo Time 28.3 Seconds (26.0-36.0)
[2019-07-11 05:52] LABS: Alanine Aminotransferase 10 Units/L (7-52); Albumin 4.1 g/dL (3.5-5.7); Albumin/Globulin Ratio 1.7 (1.1-2.2); Alkaline Phosphatase 81 Units/L (34-104); Aspartate Amino Transferase 14 Units/L (13-39); BUN/Creatinine Ratio 14 (6-26); Bilirubin,Total 0.8 mg/dL (0.3-1.0); Blood Urea Nitrogen 10 mg/dL (8-23); Calcium 8.9 mg/dL (8.6-10.3); Carbon Dioxide 21 mEq/L (23-29); Chloride 98 mEq/L (98-107); Globulin 2.4 g/dL (2.4-3.5); Glucose 110 mg/dL (70-105); Magnesium 2.3 mg/dL (1.6-2.6); Osmolality,Calculated 272 (280-300); Phosphorous 3.4 mg/dL (2.7-4.5); Potassium 3.9 mEq/L (3.5-5.1); Sodium 131 mEq/L (136-145); Total Protein 6.5 g/dL (6.4-8.9); Troponin I < 0.03 ng/mL (< 0.04); eGFR For African Americans > 60 (> 60); eGFR For Non-African Americans > 60 (> 60)
[2019-07-11 06:07] LABS: Thyroid Stimulating Hormone 5.016 mcIU/mL (0.340-5.600)
[2019-07-11] MEDS: *HR* Heparin 5,000 UNIT/ML VIAL SQ SCH ×3 (06:28→21:23)
[2019-07-11] MEDS: Famotidine 20 MG TABLET PO SCH (09:44)
[2019-07-11] MEDS: Aspirin Enteric Coated 81 MG Tablet PO SCH (09:44)
[2019-07-11] MEDS: levETIRAcetam 250 MG TABLET PO SCH ×2 (09:44→21:22)
[2019-07-11 17:13] LABS: BUN/Creatinine Ratio 14 (6-26); Blood Urea Nitrogen 10 mg/dL (8-23); Calcium 8.8 mg/dL (8.6-10.3); Carbon Dioxide 23 mEq/L (23-29); Chloride 104 mEq/L (98-107); Glucose 116 mg/dL (70-105); Osmolality,Calculated 278 (280-300); Potassium 3.7 mEq/L (3.5-5.1); Sodium 134 mEq/L (136-145); eGFR For African Americans > 60 (> 60); eGFR For Non-African Americans > 60 (> 60)
[2019-07-11] MEDS ORDERED: QUEtiapine Fumarate 25 MG TABLET PO SCH (21:00)
[2019-07-12] MEDS: *HR* Heparin 5,000 UNIT/ML VIAL SQ SCH ×2 (05:51→14:48)
[2019-07-12] MEDS: levETIRAcetam 250 MG TABLET PO SCH (09:05)
[2019-07-12] MEDS: Aspirin Enteric Coated 81 MG Tablet PO SCH (09:05)
[2019-07-12] MEDS: Famotidine 20 MG TABLET PO SCH (09:06)
[2019-07-12 10:06] LABS: Basophils % 0.7 %; Eosinophils # 0.1 K/mcL (0.0-0.6); Eosinophils % 1.9 %; Hematocrit 34.9 % (35.3-44.9); Hemoglobin 11.4 g/dL (11.5-15.4); Immature Granulocytes % 0.2 % (0-4); Lymphocytes # 1.4 K/mcL (0.6-4.6); Lymphocytes % 25.5 %; Mean Corpuscular HGB Conc 32.7 g/dL (31.6-35.5); Mean Corpuscular Hemoglobin 29.9 pg (28.0-33.3); Mean Corpuscular Volume 91.6 fL (83.0-100.0); Mean Platelet Volume 10.1 fL (9.4-12.4); Monocytes # 0.5 K/mcL (0.0-1.3); Monocytes % 8.6 %; Neutrophils # 3.4 K/mcL (1.6-8.9); Platelet Count 203 K/mcL (140-400); Red Blood Count 3.81 M/mcL (3.82-4.97); Red Cell Distribution Width 13.3 % (11.5-14.5); Segmented Neutrophils % 63.1 %; White Blood Count 5.3 K/mcL (4.3-11.1)
[2019-07-12 10:16] LABS: BUN/Creatinine Ratio 13 (6-26); Blood Urea Nitrogen 10 mg/dL (8-23); Calcium 8.8 mg/dL (8.6-10.3); Carbon Dioxide 23 mEq/L (23-29); Chloride 103 mEq/L (98-107); Glucose 154 mg/dL (70-105); Osmolality,Calculated 280 (280-300); Potassium 3.8 mEq/L (3.5-5.1); Sodium 134 mEq/L (136-145); eGFR For African Americans > 60 (> 60); eGFR For Non-African Americans > 60 (> 60)
[2019-07-12 16:02] LABS: Bilirubin,Urine Negative (Negative); Clarity,Urine Clear (Clear); Color,Urine Yellow (Yellow); Glucose,Urine (UA) Normal (Normal)
[2019-07-12 16:03] LABS: Blood,Urine Negative (Negative); Ketones,Urine Negative (Negative); Leukocyte Esterase,Urine Trace (Negative); Nitrite,Urine Negative (Negative); Protein,Urine Negative (Neg-Trace); Specific Gravity,Urine 1.012 (1.010-1.025); Urobilinogen,Urine Normal (Normal)
[2019-07-12 16:13] VITALS: BP 129/74
== END 2019-07-12 18:16 | disposition home or self-care (01) ==
LOC: 3BNU
PROVIDERS: ADMIT Internal Medicine Nephrology; ATTEND Internal Medicine Nephrology